=== PATIENT | female | born 1945 | race Caucasian/White ===

== ENCOUNTER 2024-04-09 20:17 | Inpatient (IN) | payer MEDICARE, SELFPAY ==
[2024-04-09] VITALS (18 sets, daily range): BP systolic 93–126; BP diastolic 38–74; BMI 33.7; BMI 33.4
[2024-04-09 16:53] LABS: % Basophils 0.2 % (0-2); % Eosinophils 0.6 % (0-6); % Immature Granulocytes 0.5 % (0-0.5); % Lymphocytes 16.6 % (20.5-51.1); % Monocytes 11.4 % (1.7-9.3); % Neutrophils 70.7 % (42.2-75.2); Absolute Eosinophils 0.1 10^3/uL (0-0.7); Absolute Immature Granulocytes 0.1 10^3/uL (0-0.05); Absolute Lymphocytes 1.6 10^3/uL (1.2-3.4); Absolute Monocytes 1.1 10^3/uL (0.1-0.6); Absolute Neutrophils 6.7 10^3/uL (1.4-6.5); Mean Corp Hgb Conc. 32.1 g/dL (33.0-37.0); Mean Corpuscular Hgb 28.1 pg (27.0-31.0); Mean Corpuscular Volume 87.5 fL (81.0-99.0); Mean Platelet Volume 9.2 fL (7.4-10.4); Nucleated Red Blood Cells % 0 %; Platelet Count 279 10^3/uL (130-400); Red Cell Dist. Width 13.5 % (11.5-14.5); White Blood Cell Count 9.5 10^3/uL (4.8-10.8)
[2024-04-09 17:05] LABS: ALT (SGPT) < 10 U/L (0-35); AST (SGOT) 17 U/L (14-36); Albumin 2.4 g/dl (3.5-5.0); Alkaline Phosphatase 109 U/L (38-126); Blood Urea Nitrogen 16 mg/dl (7-17); Calcium 8.5 mg/dl (8.4-10.2); Carbon Dioxide 23 mmol/L (22-30); Chloride 104 mmol/L (98-107); Estimated Creatinine Clearance 83 ml/min; Glucose 117 mg/dl (70-99); Potassium 3.6 mmol/L (3.5-5.1); Sodium 132 mmol/L (135-145); Total Bilirubin 0.5 mg/dl (0.2-1.3); Total Protein 5.7 g/dl (6.3-8.2); eGFR > 60.00
--- NOTE | 2024-04-09 17:11 | ED.GENMED ---
History of Present Illness
General
Chief Complaint: Wound Check/Suture Removal
Source: patient
Exam Limitations: none
Time Seen by Provider: 04/09/24 16:55
Nursing documentation reviewed up to this point in time: agreed with
Travel History
Have you had any contact with someone who has COVID-19?: No
Do you have any symptoms of coronavirus? Fever > 100 degrees, chills, cough, shortness of breath, sore throat, loss of taste or smell, muscle aches, or headache?: No
History of Present Illness
History of Present Illness:
Patient is a 78-year-old female with past medical history of anemia malignant melanoma of skin glaucoma lymphedema hyperlipidemia obesity was sent from [facility] for worsening sacral wound. Patient apparently developed a sacral wound at the
end of January. Patient was in rehab for left femur fracture s/p surgery01/2024) Patient follows [facility] wound care however wound is not improving. Patient presents awake alert. She has no complaints of fevers. She does complain of pain to
the sacral area when she is laying on the sacral area.
Review of Systems
Review of Systems
Allergies reviewed?: Yes
Other source history: care home
All Other Systems: ROS reviewed and negative except as documented in HPI and ROS
Constitutional: Reports no symptoms; Denies fever
Respiratory: Reports no symptoms
Cardiac: Reports no symptoms
ABD/GI: Reports no symptoms
: Reports no symptoms
Musculoskeletal: Reports no symptoms
Skin: Reports other (worsening sacral decubitus ulcer)
Neurological: Reports no symptoms
Psychiatric: Reports no symptoms
Phy Exam
General Physical Exam
General Presentation: no apparent distress
General age: appears stated age
General Skin: warm and dry
General Habitus: normal
General Mental: alert
General Hydration: appears well hydrated
Cardiovascular Exam
Cardiovascular Exam: regular rate/rhythm, no murmur and normal peripheral pulses
Pulmonary Exam
Pulmonary Exam: lungs clear and no respiratory distress
Neurological Exam
Neurological Exam: alert and oriented x3
Musculoskeletal Exam
Musculoskeletal Exam: full ROM
Skin Exam
Skin Exam: normal color, warm/dry and other (pt with large foul smell 11 cm by 14 cm by 4 cm deep sacral decubitus )
Psychiatric Exam
Psychiatric Exam: normal mood/affect
Course
Orders/Labs/Results
Orders:
Orders
04/09/24 Dinner
Regular
04/09/24 16:42
CMP [Comprehensive Metabolic Panel] Urgent
Complete Blood Count/With Diff Urgent
Ferritin Urgent
Comment: ADD ON
Folate Urgent
Comment: ADD ON
Iron Urgent
Comment: ADD ON
Total Iron Binding Urgent
Comment: ADD ON
Vitamin B12 Urgent
Comment: ADD ON
04/09/24 17:27
Wound Culture [Wound/Abscess/Other Culture] Urgent
DAVID Source: Sacral
Specimen Description:
Date Specimen was Collected: 04/09/24
Time Specimen was Collected: 17:26
04/09/24 17:30
Lactic Acid Q4H
Comment: ON ICE, CANCEL 2ND ORDER IF FIRST LACTIC ACID LEVEL <2
Blood Culture Q30M
DAVID Source: Blood/Venous
Specimen Description:
Comment: FROM 2 SEPARATE SITES
Blood Culture Q30M
DAVID Source: Blood/Venous
Specimen Description:
Comment: FROM 2 SEPARATE SITES
04/09/24 17:31
Acetaminophen [Tylenol] 650 mg PO NOW STA
04/09/24 18:26
MetroNIDAZOLE 500 MG/100 ML [Flagyl 500 mg] 100 ml IV NOW
04/09/24 19:04
CEFTAZidime [Fortaz] 2,000 mg IV NOW STA
04/09/24 19:05
Vancomycin [Vancocin] 1,500 mg 0.9% Sodium Chloride [Nss] 20 ml 0.9% Sodium Chloride 250 ml [Nss] 250 ml IV NOW
04/09/24 19:49
Admit/Transfer Patient As Directed
Co-Sign Provider:
Level of Care: Inpatient admission
Assign to:: Medical/Surgical
Physician / Group: perla muniz
Diagnosis: stage 4 sacral decub, anemia chronic, neurogenic bladder
Reason for Hospitalization: stage 4 sacral decub, anemia chronic, neurogenic bladder
Expected length of stay greater than two midnights?: Yes
ELOS- Estimated Length of Stay in days: 5
I certify the patient meets the requirements for IP care: Yes
Code Status As Directed
Resuscitation Status: Full Code
04/09/24 19:55
Add On- LAB Urgent
Tests Added?: iron ferritin, tibc, folate b12
04/09/24 19:57
SURGICAL CONSULT Routine
Consulting Provider: Ian Navarro
Was physician already notified: Yes
Reason for consult: sacral wound stage 4 or greater
04/09/24 19:58
WOUND/OSTOMY CONSULT Routine
Reason for Consult: stage 4 or greater sacral wound
MRSA Screen Routine
DAVID Source: Nose
Specimen Description:
04/09/24 19:59
CT Pelvis With Iv Contrast Routine
Comment:
Reason For Exam: sacral wound stage 4 or greater
04/09/24 20:00
De Leon Catheter [Catheter- Indwelling] As Directed
Reason for insertion: Chronic De Leon on Admit
Comment: please insert NEW de leon
04/09/24 20:15
0.9% Sodium Chloride 1000 ml [Nss] 1,000 ml IV 1,000 mls/hr
04/09/24 22:18
Acetaminophen [Tylenol] 650 mg PO Q6H PRN
Bisacodyl [Dulcolax] 10 mg RECTAL [id number] PRN
Docusate W/Senna [Senokot-S] 1 tablet PO BIDPRN PRN
Polyethylene Glycol Powder [Miralax] 17 grams PO DAILYPRN PRN
Prednisolone Acetate [Pred Forte 1% Eye Drops] 1 drop RIGHT EYE QID
Sennosides [Senokot] 8.6 mg PO BID
Simethicone [Mylicon] 80 mg PO Q6H PRN
VANCOMYCIN Pharmacy to Dose [VANCOCIN Pharmacy to Dose] 1 each Pharmacy To Prepare [Call Pharmacy To Prepare] 0 ml IV PER PROTOCOL
cycloSPORINE [Restasis 0.05% Ophthalmic Emulsion] 1 drops BOTH EYES BID
04/09/24 22:18
Activity As Directed
Activity Level: As Tolerated
Intake/ Output As Directed
Frequency: Per unit guidelines
Vital Signs As Directed
Frequency: Per unit guidelines
Ot Eval And Treat Routine
Pt Eval And Treat Routine
Activity Level: As Tolerated
DX Deep Vein Thrombosis Video Routine
04/10/24 00:00
Oxycodone [Roxicodone] 5 mg PO Q8
04/10/24 06:00
Complete Blood Count/With Diff IN AM
Comprehensive Metabolic Panel IN AM
Cefepime HCl [Maxipime] 1,000 mg IV Q8H
04/10/24 08:00
Gemfibrozil [Lopid] 600 mg PO DAILY
Lidocaine [Lidocaine 4% Patch] 1 patch TOPICAL DAILY
Oxybutynin Chloride [Ditropan] 5 mg PO BID
04/10/24 09:00
Cholestyramine/Aspartame [Questran Light/Prevalite] 4 grams PO DAILY@0900
04/10/24 18:00
Enoxaparin Sodium [Lovenox] 40 mg SC QPM
04/11/24 06:00
Complete Blood Count/With Diff IN AM
Comprehensive Metabolic Panel IN AM
04/12/24 06:00
Complete Blood Count/With Diff IN AM
Comprehensive Metabolic Panel IN AM
Abnormal Lab Results
04/09/24
16:42
RBC 3.20 L 10^6/uL
(4.20-5.40)
Hgb 9.0 L g/dL
(12.0-16.0)
Hct 28.0 L %
(37.0-47.0)
MCHC 32.1 L g/dL
(33.0-37.0)
Abs Immat Gran (auto) 0.1 H 10^3/uL
(0-0.05)
Absolute Neuts (auto) 6.7 H 10^3/uL
(1.4-6.5)
Absolute Monos (auto) 1.1 H 10^3/uL
(0.1-0.6)
Lymphocytes % 16.6 L %
(20.5-51.1)
Monocytes % 11.4 H %
(1.7-9.3)
Sodium 132 L mmol/L
(135-145)
Glucose 117 H mg/dl
(70-99)
Iron < 20 L ug/dl
(37-170)
TIBC 149 L ug/dl
(265-497)
Ferritin 307.0 H ng/ml
(11.1-264.0)
Total Protein 5.7 L g/dl
(6.3-8.2)
Albumin 2.4 L g/dl
(3.5-5.0)
Vitamin B12 216 L pg/ml
(239-931)
04/09/24 16:42
04/09/24 16:42
Vital Signs
Initial and Last Documented VS:
Initial Vital Signs
Temp Pulse Resp BP Pulse Ox
99.3 F 86 16 115/54 95
04/09/24 15:57 04/09/24 15:57 04/09/24 15:57 04/09/24 15:57 04/09/24 15:57
Last Documented Vital Signs
Temp Pulse Resp BP Pulse Ox
98.2 F 78 20 110/51 93
04/09/24 22:43 04/09/24 22:43 04/09/24 22:43 04/09/24 22:43 04/09/24 22:43
MDM/Problems Addressed
Differential Diagnosis Includes:
not limited to: sacral wound
MDM/Problems Addressed:
Patient is a 78 old female who was sent by [facility] for worsening sacral wound. Patient had displaced intertrochanteric fracture left femur with surgery January 2024 and has been in rehab since. She is presently being followed by [facility]'s
wound care without improvement. She is on no oral antibiotics. Patient presents awake alert she is oriented she is able to give history. She denies any fever or chills. She does not feel ill. She however was found to have a low-grade
temperature of 100.3. She was given Tylenol. Her white count is normal at 9.5 and her lactic acid is normal. She is anemic with a hemoglobin of 9.0 no prior labs denies any black or dark stools. She has normal renal function. On exam she has a
significant most likely stage IV decubitus ulcer to sacral area with very foul-smell iv antibx ordered. will likely need debridement.
Chronic conditions affecting care:
Recent left hip fracture and surgery January 2024
*Pulse Oximetry
Patient hypoxic: no
*Critical Care Note
Total Time (30-74mins, 75-104mins- exclusive of procedures): Not Applicable
ED Attending Note
-
Portions of this chart may have been created with voice recognition software.� Occasional wrong word or��sound alike� substitutions may have occurred due to the inherent limitations of voice recognition software.
Discharge Plan
Departure
Patient Disposition: Admit
Date of Disposition: 04/09/24
Time of Disposition: 18:32
Admit to: Med/Surg
Admit to doctor: hospitalist
Presentation/result/management discussed w/ accepting MD/DO: Hospitalist
Patient with high blood pressure during this ER visit?: No
Condition: Fair
Covid-19: Not Applicable
Discharge Problem:
sacral decubitus
Interventions
Interventions:
*Risk Screen - Suicide Last Done: 04/09/24 16:15
*General Assessment Last Done: 04/09/24 16:15
*Neglect/Abuse Screening Last Done: 04/09/24 16:15
*ED COVID-19 Vaccine History Last Done: 04/09/24 16:15
*Nursing Disposition Last Done: 04/09/24 22:17
ED-Skin Assessment Last Done: 04/09/24 16:40
Discharge Date and Time
Discharge Date/Time: 04/09/24 22:17
[2024-04-09] MEDS: TYLENOL 650 MG PO (17:37)
[2024-04-09 17:55] LABS: Lactic Acid 1.1 mmol/L (0.7-2.0)
[2024-04-09] MEDS: FLAGYL 500 MG 100 IV (19:07)
--- NOTE | 2024-04-09 19:19 | HPS.HSE ---
Family Physician
-
Family Physician: Celso Pepper
Chief Complaint
-
Foul-smelling sacral wound
History of Present Illness
78-year-old female from [facility] rehab sent for worsening sacral decub. She had history of a left femur fracture repair in January at [facility]. She has been following with [place] [facility]'s wound care however the wound is not
improving. She was noted to have a foul-smelling sacral decub with low-grade temp of 100.3 and pain to the sacral area with lying. She denies headache, shortness of breath, cough, abdominal pain, nausea, vomiting, diarrhea, urinary symptoms. She
reports she has been at [facility] rehab for several weeks since her was moved there also due to his dementia. She states for the last week she has only been able to intramural director place with a walker prior to that she was lying in bed she has
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
neurogenic bladder history of self cath prior to surgery January 2024 now with chronic Ramos catheter.
Medical History
Past Medical History
Past Medical History: Reports Other
Additional Past Medical History:
Anemia
neurogenic bladder history of self cath prior to surgery January 2024 now with chronic Ramos catheter.
malignant melanoma of skin right forearm
glaucoma
blind left eye
aniridia bilateral eyes
HLD
obesity
tethered cord syndrome 10-20 years ago repair with laminectomy was walking prior to surgery
Past Surgical History: Reports Other
Additional Past Surgical History:
Laminectomy lumbar
Left femur repair January 2024 [facility]
Melanoma removal right forearm
Appendectomy
Tonsillectomy
Cholecystectomy
Social History
Tobacco: Non-smoker
Alcohol: None
Drug: None
Personal:
Living: Senior Living ([place] [facility] )
Employment: Retired
Family History
Family History: Not pertinent
Allergies / Home Medications
Allergies reflects when Allergies were last updated in [email or web address].
Home Medications with original date entered in [email or web address]
Allergy/Medication List:
Allergies
Allergy/AdvReac Type Severity Reaction Status Date / Time
brimonidine Allergy Unknown Verified 04/09/24 16:15
Home Medications
acetaminophen 325 mg tablet 650 mg PO Q6H PRN general discomfort/fever>100.4 04/09/24
cholestyramine-aspartame 4 gram oral powder for susp in a packet (Cholestyramine Light) 4 g PO DAILY 04/09/24
collagenase clostridium histo. 250 unit/gram topical ointment (Santyl) 1 applic topical DAILY 04/09/24
cyclosporine 0.05 % eye drops in a dropperette 1 drp BOTH EYES BID 04/09/24
docusate sodium 100 mg capsule 100 mg PO BID 04/09/24
gemfibrozil 600 mg tablet 600 mg PO DAILY 04/09/24
lidocaine 4 % topical patch 1 patch topical DAILY lower back 04/09/24
oxybutynin chloride 10 mg tablet,extended release 24 hr 10 mg PO DAILY 04/09/24
oxycodone 5 mg tablet 5 mg PO Q8H 04/09/24
prednisolone acetate 1 % eye drops,suspension 1 drp RIGHT EYE QID 04/09/24
sennosides 8.6 mg tablet (senna) 8.6 mg PO BID 04/09/24
simethicone 80 mg chewable tablet 80 mg PO Q6H PRN gas 04/09/24
white petrolatum-mineral oil eye ointment 1 applic BOTH EYES DAILY 04/09/24
Review of Systems
-
History Source: Patient
A 12 point ROS was completed and negative except as noted: Yes
Constitutional: Reports Fever and Chills
EENT: Reports Other (Chronic lack of iris, aniridia, chronic cataract over left eye with left eye blindness); Denies Sore Throat or Runny Nose
Respiratory: Denies Cough or Trouble Breathing
Cardiac: Denies Chest Pain, Diaphoresis, Palpitations or Syncope
Abdomen/GI: Denies Abdominal Pain, Nausea, Vomiting, Diarrhea, Constipated, Bloody Stools or Black Stools
: Reports Ramos (Chronic Ramos catheter present on admission)
Musculoskeletal: Denies Joint Pain or Edema
Skin: Reports Other (Stage IV sacral decub foul-smelling with tunneling); Denies Itching
Neurological: Denies Dizzy, Headache or Weakness
Endocrine: Reports No Symptoms
Hematologic/Lymphatic: Reports No Symptoms
Psych: Reports Calm
Physical Exam
Vital Signs
Vital Signs
Temp Pulse Resp BP Pulse Ox
100.3 F 73 18 110/54 94
04/09/24 17:26 04/09/24 18:15 04/09/24 16:38 04/09/24 18:00 04/09/24 18:15
Physical Exam
General: Pain; No Chills
HEENT: NormoCephalic, Anicteric, [place] Conjunctivae and Other (Blind left eye with cataract overlying, chronic aniridia bilateral eyes since )
Respiratory: Clear; No Wheezes, Rales or Rhonchi
Cardiac: S1/S2 and Regular Rhythm; No Murmur, Rub, Gallop or Peripheral Edema
Breast: Deferred by me
GI: Soft, Non Tender, Non Distended, Normal Bowel Sounds and No Hepatosplenomegaly
Rectal: Deferred by Provider
Genito-urinary: Ramos (Present on admission due to neurogenic bladder)
Musculoskeletal: No Clubbing, No Cyanosis and No Edema
Skin: Warm, Dry and Decubitus Ulcers (Stage IV sacral decub foul-smelling with tunneling and green wound bed); No Rash
Neuro: AO x 3 and Other (Blind left eye, able to turn self in bed); No Slurred Speech, Facial Droop or Tremors
Psych: Calm
Laboratory Results
-
04/09/24 16:42
04/09/24 16:42
Laboratory Results
Lactic Acid 1.1 mmol/L (0.7-2.0) 04/09/24 17:30
Total Bilirubin 0.5 mg/dl (0.2-1.3) 04/09/24 16:42
AST 17 U/L (14-36) 04/09/24 16:42
ALT < 10 U/L (0-35) 04/09/24 16:42
Alkaline Phosphatase 109 U/L (38-126) 04/09/24 16:42
Impression/Plan
-
Impression/plan:
Admit to [facility]
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
100.3 F, WBC 9.5, 110/54
-Wound culture foul-smelling drainage, blood cultures x 2
-CT pelvis with contrast to assess sacral wound
-Consult general surgery as no one is on-call for plastics
-Consult wound care
-Tylenol as needed fever
-IV vancomycin, IV Flagyl, IV Fortaz given in Er
will cont IV vancomycin, IV cefepime
-Continue RESIDENTIAL CHILD CARE COUNSELOR oxycodone 5 mg every 8 hours with bowel regimen
#Status post intertrochanteric fracture left femur with repair January 2024 [facility]
#Chronic anemia�normocytic
Hgb 9, MCV 87.5 no prior labs
-Check iron panel, B12, folate
#Tethered cord syndrome 10 to 20 years ago status post laminectomy
#Neurogenic bladder history self cath
Patient used to self cath prior to surgery end of January
-Ramos catheter patient reports has been in since end january although appears clean
Will replace Ramos catheter on admission
#HLD
-Continue gemfibrozil 600 mg daily
#Malignant melanoma skin right forearm
#Obesity due to excess calorie consumption�BMI 33.7 kg
Weight loss recommended, low-fat diet
#Glaucoma�blind left eye
-Continue prednisone drops to right eye, cyclosporine 1 drop both eyes twice daily
#Aniridia both eyes since
DVT prophylaxis
Subcu Lovenox
Full code
--- NOTE | 2024-04-09 20:16 | W.PN.UPDATE ---
Update Note
Progress Note Update
This addendum is for H&P written on 04/09/24
I agree with assesmsent and plan, in addition
78yo F that was mostly bedbound since her fall and L femoral Fx in January broought from SNF with worsening sacral ulcer. On bedside eval found to have necrotic borders and tract. COncern for OM
-Cefepime/Vanco, CT pelvis, ESR/CRP, Bcx, Plastics for wound I&D and cultures
We have spent at least 79min preparing admission, reviewing previous chart notes, SNF papaerwork and direct patient care
[2024-04-09] MEDS: NSS 1000 IV (20:19)
[2024-04-09] MEDS: FORTAZ 2000 MG IV (20:26)
[2024-04-09 20:35] LABS: Total Iron Binding Capacity 149 ug/dl (265-497)
[2024-04-09 20:36] LABS: Iron < 20 ug/dl (37-170)
--- NOTE | 2024-04-09 20:53 | EDRN ---
this pts existing 14Franch de leon catheter that was present upon arrival to ER was removed by this NUT FORMER and replaced with a new one per JOE Monahan verbal order
[2024-04-09] MEDS: VANCOCIN 300 MG IV (20:57)
[2024-04-09] MEDS: VANCOCIN 300 ML IV (20:57)
[2024-04-09 21:47] LABS: Folate 8.9 ng/ml (2.76-20); Vitamin B12 216 pg/ml (239-931)
--- NOTE | 2024-04-09 22:30 | PTCARENOTE ---
Patient arrived from ED via stretcher to room 335, pulled from stretcher to bed with assist of 3 person. Patient alert and oriented, blind to left eye and BELKO[place]KI. Patient is wearing glasses. IVF bolus and vancomycin running at this time from ED.
Patient c/o pain to left hip (prior fracture, healed) and sacral pain from large nonhealing ulcer. Dressing in place, large amount of drainage present, foul smelling. Patient with chronic de leon catheter in place -- exchanged in ED this admission.
Call cha placed with patient and in reach, patient understands use of call cha. Will monitor.
[2024-04-09] MEDS: ROXICODONE 5 MG PO (23:28)
[2024-04-09] MEDS: RESTASIS 0.05% OPHTHALMIC EMULSION 1 DROPS BOTH EYES (23:28)
[2024-04-09] MEDS: SENOKOT 8.59999999999999964 MG PO (23:28)
[2024-04-09] MEDS: PRED FORTE 1% EYE DROPS 1 DROP RIGHT EYE (23:29)
[2024-04-10 06:00] VITALS: BMI 33.3
--- NOTE | 2024-04-10 06:00 | PTCARENOTE ---
Wound care performed to large unstageable/stage4 sacral decub ulcer -- ABD dressing taped to area with significant amount of purulent/foul smelling necrotic appearing drainage. Drainage brown in color, thick and slimy. Wound care and surgery
consulted to evaluate patient -- still awaiting consults at this time. Cleansed area with saline, packed area with saline soaked gauze and covered with silicone foams x3. Patient is unsure of how often wound care is performed, or even supposed to be
performed, at [facility]. She was unable to tell this RN if she had wound care performed by facility prior to arrival. Patient states 'I think they are probably supposed to be performing wound care every day, but who knows if they do.' Will
continue to monitor.
[2024-04-10] MEDS: TYLENOL 650 MG PO ×3 (06:03→22:35)
[2024-04-10] MEDS: MAXIPIME 1000 MG IV ×3 (06:04→21:03)
[2024-04-10] MEDS: STERILE WATER FOR INJECTION 10 ML IV ×3 (06:05→21:03)
[2024-04-10 07:00] VITALS: BP 109/42
[2024-04-10 07:43] LABS: % Basophils 0.3 % (0-2); % Eosinophils 0.3 % (0-6); % Immature Granulocytes 1.6 % (0-0.5); % Lymphocytes 14.2 % (20.5-51.1); % Neutrophils 71.6 % (42.2-75.2); Absolute Immature Granulocytes 0.2 10^3/uL (0-0.05); Absolute Lymphocytes 1.3 10^3/uL (1.2-3.4); Absolute Monocytes 1.1 10^3/uL (0.1-0.6); Absolute Neutrophils 6.7 10^3/uL (1.4-6.5); Hematocrit 26.4 % (37.0-47.0); Hemoglobin 8.4 g/dL (12.0-16.0); Mean Corp Hgb Conc. 31.8 g/dL (33.0-37.0); Mean Platelet Volume 9.5 fL (7.4-10.4); Nucleated Red Blood Cells % 0 %; Platelet Count 248 10^3/uL (130-400); Red Cell Dist. Width 13.7 % (11.5-14.5); White Blood Cell Count 9.4 10^3/uL (4.8-10.8)
--- NOTE | 2024-04-10 07:58 | W.PN.HOSP.TC ---
Today's Communication/Plan
-
see bold
Assessment / Plan
Assessment / Plan
HPI: 78-year-old female from [facility] rehab sent for worsening sacral decub. She had history of a left femur fracture repair in January at [facility]. She has been following with [facility]'s wound care however the wound is not
improving. She was noted to have a foul-smelling sacral decub with low-grade temp of 100.3 and pain to the sacral area with lying. She denies headache, shortness of breath, cough, abdominal pain, nausea, vomiting, diarrhea, urinary symptoms. She
reports she has been at [facility] rehab for several weeks since her was moved there also due to his dementia. She states for the last week she has only been able to insole rounder place with a walker prior to that she was lying in bed she has
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
neurogenic bladder history of self cath prior to surgery January 2024 now with chronic Ramos catheter.
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
100.3 F, WBC 9.5, 110/54
Status post Fortaz in the ER
Continue IV vancomycin, cefepime, follow-up blood cultures, wound culture
General surgery consulted for possible debridement
Trend fever and white count
#Status post intertrochanteric fracture left femur with repair January 2024 [facility]
Continue pain control, PT/OT
#Chronic anemia�normocytic
Iron level low, ferritin high due to inflammation
Due to iron deficiency and chronic inflammation
Unable to give iron secondary to infection
Continue to trend hemoglobin, transfuse for hemoglobin less than 7 point
#Tethered cord syndrome 10 to 20 years ago status post laminectomy
#Neurogenic bladder history self cath
Patient used to self cath prior to surgery end of January
Now has chronic Ramos, it was changed on admission
#HLD
Continue gemfibrozil 600 mg daily
#Malignant melanoma skin right forearm
#Obesity due to excess calorie consumption�BMI 33.7 kg
Weight loss recommended, low-fat diet
#Glaucoma�blind left eye
Continue prednisone drops to right eye, cyclosporine 1 drop both eyes twice daily
#Aniridia both eyes since
DVT prophylaxis�subcu Lovenox
Full code
Physical Exam
General: Obese, no acute distress
HEENT: Normocephalic, Atraumatic, EOMI, MMM
Respiratory: Clear to Auscultation bilaterally
Cardiac: Normal S1/S2, Regular Rate and Rhythm
GI: Soft, Nontender, Nondistended, Normal Bowel Sounds
Extremities: No Clubbing, Cyanosis, or Edema
Neuro: Nonfocal/Grossly Intact
Psych: Calm, Cooperative
Derm: Stage IV sacral decubitus ulcer dressed
Anticipated Discharge: > 48 hours
Subjective/Interval History
-
Date of Service: April 10, 2024
Patient denies lightheadedness, denies dizziness. Her sacral pain is 7 out of 10 in intensity. No chest pain, shortness of breath. No fever, no vomiting.
Objective Data
-
Labs:
Laboratory Results
04/10/24
07:08
WBC 9.4
Hgb 8.4 L
Hct 26.4 L
Plt Count 248
Sodium Pending
Potassium Pending
Chloride Pending
Carbon Dioxide Pending
BUN Pending
Creatinine Pending
Glucose Pending
Calcium Pending
Total Bilirubin Pending
AST Pending
ALT Pending
Alkaline Phosphatase Pending
Vital Signs:
Vital Signs
Temp Pulse Resp BP Pulse Ox
98.7 F 77 18 109/42 95
04/10/24 07:00 04/10/24 07:00 04/10/24 07:00 04/10/24 07:00 04/10/24 07:00
I&O
04/09/24 04/10/24 04/11/24
06:59 06:59 06:59
Output Total 650 / 650
Balance -650 / -650
[2024-04-10 08:41] LABS: ALT (SGPT) < 10 U/L (0-35); AST (SGOT) 16 U/L (14-36); Albumin 2.2 g/dl (3.5-5.0); Alkaline Phosphatase 105 U/L (38-126); Blood Urea Nitrogen 13 mg/dl (7-17); Carbon Dioxide 21 mmol/L (22-30); Chloride 107 mmol/L (98-107); Estimated Creatinine Clearance 83 ml/min; Glucose 100 mg/dl (70-99); Potassium 3.3 mmol/L (3.5-5.1); Sodium 132 mmol/L (135-145); Total Bilirubin 0.4 mg/dl (0.2-1.3); Total Protein 5.3 g/dl (6.3-8.2); eGFR > 60.00
[2024-04-10] MEDS: RESTASIS 0.05% OPHTHALMIC EMULSION 1 DROPS BOTH EYES ×2 (08:45→21:02)
[2024-04-10] MEDS: PRED FORTE 1% EYE DROPS 1 DROP RIGHT EYE ×4 (08:45→22:29)
[2024-04-10] MEDS: ROXICODONE 5 MG PO ×2 (08:45→15:06)
[2024-04-10] MEDS: QUESTRAN LIGHT/PREVALITE 4 GRAMS PO (08:45)
[2024-04-10] MEDS: LOPID 600 MG PO (08:45)
[2024-04-10] MEDS: SENOKOT 8.59999999999999964 MG PO ×2 (08:46→21:03)
[2024-04-10] MEDS: DITROPAN 5 MG PO ×2 (08:46→21:02)
--- NOTE | 2024-04-10 11:09 | PHA.VAN.IN ---
Assessment
- Assessment
Renal Function: Unknown baseline (0.6)
Maximum Temperature: 100.5 04/09/24 at 19:10 orally
Minimum Temperature: 98.2 04/09/24 at 22:43 orally
Concomitant Antimicrobials: Cefepime
AUC Dosing Plan
- Dosing Variables
Dosing Weight (kg): 85.3
Dosing CrCl (ml/min): 83
Vd coefficient (L/kg): 0.6
- Empiric Dosing
Initial / Loading Dose: Vancomycin 1500mg IV x 1 given 04/09/24 at 20:57
Maintenance Regimen: Vancomycin 750mg IV Q12hr starting at noon today
Estimated AUC (mcg*h/mL): 415
Estimated Peak (mcg*h/mL): 25
Estimated Trough (mcg/ml): 10
Estimated Half Life (H): 9.5
Pharmacokinetics Vancomycin I
- -
Patient Age: 78
Patient Sex: Female
Vancomycin Day #: 1
Indication: Skin And Soft Tissue
Requesting Provider: Lisa DIAZ
Pertinent Antimicrobial Allergies:
No antibiotic allergies
Height / Weight:
Height 5 ft 3 in
Actual Weight 85.304 kg
IBW in k.4
Adjusted BW in k.6
Pertinent Past Medical History: BMI~33,L Femur fx repair 02/21, chronic de leon, non-healing sacral wound
- Vital Signs / Lab Results
Temp Pulse Resp BP Pulse Ox
98.7 F 77 18 109/42 95
04/10/24 07:00 04/10/24 07:00 04/10/24 07:00 04/10/24 07:00 04/10/24 07:00
Lab Results - Hematology
04/09/24 04/10/24
16:42 07:08
WBC 9.5 9.4
Lab Results - Chemistry
04/09/24 04/10/24
16:42 07:08
BUN 16 13
Creatinine 0.6 0.6
Estimated Creat Clear 83 83
Albumin 2.4 L 2.2 L
04/09/24 04/09/24
17:30 21:30
Lactic Acid 1.1 Cancelled
Microbiology Results
04/09/24 17:27 Gram Stain - Preliminary
Sacral
--- NOTE | 2024-04-10 11:50 | CON.GS ---
Consultation
-
Requesting Provider: Taniya
Performing Provider: Huong for Ramon
Reason for Consultation: sacral wound
Medical History
-
Chief Complaint: Sacral ulcer
History of Present Illness:
78 yo female with a history of tethered cord with laminectomy, neurogenic bladder maintained with chronic de leon (changed on admission) and recent left femur fracture with repair at [facility] in January presenting from [facility]. She presents with
low grade fevers and reported worsening of a stage 4 sacral decubitus ulcer. The wound is foul smelling with dangling necrotic tissue over the site. There is cloudy purulent drainage present. She complains of sacral pain which she notes has been
present for several months.
Past Medical History
Past Medical History: Cancer (melanoma of right forearm), Hypercholesterolemia and Other (Neurogenic bladder with chronic urinary retention, maintained with de leon. Glaucoma: blind left eye. [place]. Anemia)
Past Surgical History: Appendectomy, Cholecystectomy, Orthopedic (tethered cord syndrome 10-20 years ago repair with laminectomy, [facility] femur [facility]) and Tonsilectomy
Social History
Tobacco: Non-Smoker
Alcohol: None
Living: Snf ([facility])
Employment: Retired
Family History
Family History: Reviewed & Not Pertinent
Allergies / Home Medications
Allergy/AdvReac Type Severity Reaction Status Date / Time
brimonidine Allergy Unknown Verified 04/09/24 16:15
�Medication �Instructions �Recorded �Confirmed �Type
acetaminophen 325 mg tablet 650 mg PO Q6H PRN general 04/09/24 04/09/24 History
discomfort/fever>100.4
cholestyramine-aspartame 4 gram 4 g PO DAILY Gastrointestinal Issue 04/09/24 04/09/24 History
oral powder for susp in a packet
(Cholestyramine Light)
collagenase clostridium histo. 250 1 applic topical DAILY Skin Issues 04/09/24 04/09/24 History
unit/gram topical ointment (Santyl)
cyclosporine 0.05 % eye drops in a 1 drp BOTH EYES BID Eye Condition 04/09/24 04/09/24 History
dropperette
docusate sodium 100 mg capsule 100 mg PO BID Constipation 04/09/24 04/09/24 History
gemfibrozil 600 mg tablet 600 mg PO DAILY High Cholesterol 04/09/24 04/09/24 History
lidocaine 4 % topical patch 1 patch topical HS lower back 04/09/24 04/10/24 History
oxybutynin chloride 10 mg 10 mg PO DAILY Urinary Issue 04/09/24 04/09/24 History
tablet,extended release 24 hr
oxycodone 5 mg tablet 5 mg PO Q8H Pain 04/09/24 04/09/24 History
prednisolone acetate 1 % eye 1 drp RIGHT EYE QID Eye Condition 04/09/24 04/09/24 History
drops,suspension
sennosides 8.6 mg tablet (senna) 8.6 mg PO BID Constipation 04/09/24 04/09/24 History
simethicone 80 mg chewable tablet 80 mg PO Q6H PRN gas 04/09/24 04/09/24 History
white petrolatum-mineral oil eye 1 applic BOTH EYES DAILY Eye 04/09/24 04/09/24 History
ointment Condition
Review of Systems
-
History Source: Patient
All other systems: Negative unless noted
A 10 point review of systems was completed, and was negative except as per HPI.
Physical Exam
Vital Signs
Temp Pulse Resp BP Pulse Ox
98.7 F 77 18 109/42 95
04/10/24 07:00 04/10/24 07:00 04/10/24 07:00 04/10/24 07:00 04/10/24 07:00
04/09/24 04/10/24 04/11/24
06:59 06:59 06:59
Actual Weight 85.304 kg
Body Mass Index (BMI) 33.3
Lab Results
04/10/24 07:08
04/10/24 07:08
WBC 9.4 10^3/uL (4.8-10.8) 04/10/24 07:08
Hgb 8.4 g/dL (12.0-16.0) L 04/10/24 07:08
Hct 26.4 % (37.0-47.0) L 04/10/24 07:08
Plt Count 248 10^3/uL (130-400) 04/10/24 07:08
Abs Immat Gran (auto) 0.2 10^3/uL (0-0.05) H 04/10/24 07:08
Neutrophils % 71.6 % (42.2-75.2) 04/10/24 07:08
Physical Exam
General: Well Developed
HEENT: Moist Mucous Membranes
Respiratory: Non Labored Respirations
GI: Soft and Non Tender
Rectal: Other (Prolapse present)
Skin: Warm and Other (Stage 4 pressure ulcer to sacrum, long segment of tissue hanging off edge of wound. [place] granulation tissue noted to side of wound bed. Tissue slough over bony prominence. )
Neuro: Awake, Alert and AO x 3
Psych: Calm
Data Reviewed
-
CT Scan: Image Personally Visualized and interpreted, Report Reviewed by me, Discussed with Nurse and Discussed with Patient
Labs: Labs Reviewed by me, Discussed with Physician, Discussed with Nurse and Discussed with Patient
Old Records: Reviewed
Assessment / Plan
-
78 yo female with left hip surgery in January presenting from SNF presenting with fevers and worsening Stage 4 pressure ulcer to sacrum with necrotic tissue noted. Thin layer of slough over bony prominence. Bedside debridement preformed and wound
culture sent. No tamiko pus noted.
Tmax of 100.5 last night, otherwise AFVSS
No leukocytosis
--Wound consult pending, will need OP follow up in wound clinic
--Local care with Dakin's 1/4 strength soaked packing. Change BID
--IV abx as per primary team
--Continue bowel regimen
[2024-04-10 12:57] VITALS: BP 117/54; PULSE 84; O2SAT 94
[2024-04-10 13:04] VITALS: BP 117/54; PULSE 84; O2SAT 95
[2024-04-10] MEDS: VANCOCIN 150 IV ×2 (13:05→21:00)
[2024-04-10 15:00] VITALS: BP 110/40
[2024-04-10 15:23] VITALS: BMI 33.3
[2024-04-10] MEDS: LOVENOX 40 MG SC (18:30)
[2024-04-10] MEDS: MIRALAX 17 GRAMS PO (21:02)
[2024-04-10] MEDS: LIDOCAINE 4% PATCH 1 PATCH TOPICAL (21:02)
[2024-04-10 23:00] VITALS: BP 114/45
[2024-04-11] MEDS: ROXICODONE PO (02:06)
[2024-04-11] MEDS: DAKIN'S SOLUTION 0.125% 1/4 STRENGTH TOPICAL (04:46)
[2024-04-11] MEDS: MAXIPIME 1000 MG IV ×3 (05:00→21:54)
[2024-04-11] MEDS: VANCOCIN 150 IV ×2 (05:00→17:49)
[2024-04-11] MEDS: STERILE WATER FOR INJECTION 10 ML IV ×3 (05:00→21:54)
[2024-04-11 07:30] VITALS: BP 122/64
[2024-04-11 07:57] LABS: Hematocrit 26.3 % (37.0-47.0); Hemoglobin 8.6 g/dL (12.0-16.0); Mean Corp Hgb Conc. 32.7 g/dL (33.0-37.0); Mean Corpuscular Volume 85.7 fL (81.0-99.0); Mean Platelet Volume 9.9 fL (7.4-10.4); Platelet Count 223 10^3/uL (130-400); Red Blood Cell Count 3.07 10^6/uL (4.20-5.40); Red Cell Dist. Width 13.6 % (11.5-14.5); White Blood Cell Count 6.7 10^3/uL (4.8-10.8)
[2024-04-11 08:15] LABS: ALT (SGPT) < 10 U/L (0-35); AST (SGOT) 17 U/L (14-36); Albumin 2.2 g/dl (3.5-5.0); Alkaline Phosphatase 98 U/L (38-126); Blood Urea Nitrogen 15 mg/dl (7-17); Calcium 8.1 mg/dl (8.4-10.2); Carbon Dioxide 22 mmol/L (22-30); Chloride 107 mmol/L (98-107); Estimated Creatinine Clearance 83 ml/min; Glucose 107 mg/dl (70-99); Phosphorus 2.9 mg/dl (2.5-4.5); Potassium 3.5 mmol/L (3.5-5.1); Sodium 131 mmol/L (135-145); Total Bilirubin 0.4 mg/dl (0.2-1.3); Total Protein 5.4 g/dl (6.3-8.2); eGFR > 60.00
--- NOTE | 2024-04-11 09:13 | W.PN.HOSP.TC ---
Today's Communication/Plan
-
see bold
Assessment / Plan
Assessment / Plan
HPI: 78-year-old female from [facility] rehab sent for worsening sacral decub. She had history of a left femur fracture repair in January at [facility]. She has been following with [place] care however the wound is not
improving. She was noted to have a foul-smelling sacral decub with low-grade temp of 100.3 and pain to the sacral area with lying. She denies headache, shortness of breath, cough, abdominal pain, nausea, vomiting, diarrhea, urinary symptoms. She
reports she has been at [facility] rehab for several weeks since her was moved there also due to his dementia. 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
neurogenic bladder history of self cath prior to surgery January 2024 now with chronic Ramos catheter.
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
100.3 F, WBC 9.5, 110/54
Status post Fortaz in the ER
Appreciate surgery input, status post bedside I&D on 04/10
Patient may require further I&D in the OR with possible colostomy in the future
Continue IV vancomycin, cefepime, follow-up blood cultures, wound culture
Trend fever and white count
#Status post intertrochanteric fracture left femur with repair January 2024 [facility]
Continue pain control, PT/OT
#Chronic anemia�normocytic
Iron level low, ferritin high due to inflammation
Due to iron deficiency and chronic inflammation
Unable to give iron secondary to infection
Continue to trend hemoglobin, transfuse for hemoglobin less than 7 point
#Tethered cord syndrome 10 to 20 years ago status post laminectomy
#Neurogenic bladder history self cath
Patient used to self cath prior to surgery end of January
Now has chronic Ramos, it was changed on admission
#Hypokalemia
Replete as needed
#Hyponatremia
Fluid restrict, check TSH/free T4, urine studies, trend sodium
#HLD
Continue gemfibrozil 600 mg daily
#Malignant melanoma skin right forearm
#Obesity due to excess calorie consumption�BMI 33.7 kg
Weight loss recommended, low-fat diet
#Glaucoma�blind left eye
Continue prednisone drops to right eye, cyclosporine 1 drop both eyes twice daily
#Aniridia both eyes since
DVT prophylaxis�subcu Lovenox
Full code
Total time spent to see the patient on the floor, examine the patient, review data and lab results, discuss treatment plan with patient, nursing staff around 50 minutes.
Physical Exam
General: Obese, no acute distress
HEENT: Normocephalic, Atraumatic, EOMI, MMM
Respiratory: Clear to Auscultation bilaterally
Cardiac: Normal S1/S2, Regular Rate and Rhythm
GI: Soft, Nontender, Nondistended, Normal Bowel Sounds
Extremities: No Clubbing, Cyanosis, or Edema
Neuro: Nonfocal/Grossly Intact
Psych: Calm, Cooperative
Derm: Stage IV sacral decubitus ulcer dressed
Anticipated Discharge: > 48 hours
Subjective/Interval History
-
Date of Service: April 11, 2024
Patient reports her pain is 6 out of 10 in intensity. No chest pain, no shortness of breath. No fever, no vomiting.
Objective Data
-
Labs:
Laboratory Results
04/11/24
07:07
WBC 6.7
Hgb 8.6 L
Hct 26.3 L
Plt Count 223
Sodium 131 L
Potassium 3.5
Chloride 107
Carbon Dioxide 22
BUN 15
Creatinine 0.5 L
Glucose 107 H
Calcium 8.1 L
Total Bilirubin 0.4
AST 17
ALT < 10
Alkaline Phosphatase 98
Vital Signs:
Vital Signs
Temp Pulse Resp BP Pulse Ox
98.6 F 80 20 122/64 94
04/11/24 07:30 04/11/24 07:30 04/11/24 07:30 04/11/24 07:30 04/11/24 07:30
I&O
04/10/24 04/11/24 04/12/24
06:59 06:59 06:59
Intake Total 720 / 720
Output Total 650 / 650 325 / 325
Balance -650 / -650 395 / 395
--- NOTE | 2024-04-11 09:16 | W.PN.GS2 ---
Today's Communication / Plan
-
Dressing changes BID
Assessment / Plan
-
78yo with a known sacral decubitus ulcer who presents from [facility] with a low-grade temp and pain in the area.. She underwent surgery for a left femur fracture in January 2024 at [facility]. Has followed with wound care at [facility].
AFVSS
No leukocytosis
May need eventual operative debridement and possible diverting colostomy; however, wound thus far improving s/p bedside debridement on 04/10/24
--Wound care to follow
--Continue BID dressing changes with Dakin's 1/4 soaked gauze (wet to dry)
Subjective Data
-
Date of Service: April 11, 2024
Patient seen and examined at bedside with Dr. Navarro. C/O sacral discomfort. Denies fevers/chills
Objective Data
-
Intake and Output
04/10/24 04/11/24 04/12/24
06:59 06:59 06:59
Intake Total 720 / 720
Output Total 650 / 650 325 / 325
Balance -650 / -650 395 / 395
Intake:
Oral fluids 720 / 720
Output:
Urine, Ramos 650 / 650 325 / 325
Vital Signs
Temp Pulse Resp BP Pulse Ox
98.6 F 80 20 122/64 94
04/11/24 07:30 04/11/24 07:30 04/11/24 07:30 04/11/24 07:30 04/11/24 07:30
Lab Results
04/11/24 07:07
04/11/24 07:07
Calcium 8.1 mg/dl (8.4-10.2) L 04/11/24 07:07
Phosphorus 2.9 mg/dl (2.5-4.5) 04/11/24 07:07
Magnesium 2.0 mg/dl (1.6-2.3) 04/11/24 07:07
Total Bilirubin 0.4 mg/dl (0.2-1.3) 04/11/24 07:07
AST 17 U/L (14-36) 04/11/24 07:07
ALT < 10 U/L (0-35) 04/11/24 07:07
Alkaline Phosphatase 98 U/L (38-126) 04/11/24 07:07
Total Protein 5.4 g/dl (6.3-8.2) L 04/11/24 07:07
Albumin 2.2 g/dl (3.5-5.0) L 04/11/24 07:07
Physical Exam
-
NAD
ABD soft/nt
Large sacral stage 4 wound, externally 13x9cm with tunnelling to proximal end. Granulation tissue noted to majority of wound, slough overlying bone. Serous/alexandra drainage on gauze packing. Dressing changed.
[2024-04-11] MEDS: ROXICODONE 5 MG PO ×2 (09:36→15:27)
[2024-04-11] MEDS: DITROPAN 5 MG PO ×2 (09:36→21:54)
[2024-04-11] MEDS: PRED FORTE 1% EYE DROPS 1 DROP RIGHT EYE ×4 (09:36→21:55)
[2024-04-11] MEDS: LOPID 600 MG PO (09:36)
[2024-04-11] MEDS: SENOKOT 8.59999999999999964 MG PO ×2 (09:36→21:54)
[2024-04-11] MEDS: RESTASIS 0.05% OPHTHALMIC EMULSION 1 DROPS BOTH EYES ×2 (09:36→21:54)
[2024-04-11] MEDS: QUESTRAN LIGHT/PREVALITE 4 GRAMS PO (09:37)
[2024-04-11] MEDS: DAKIN'S SOLUTION 0.125% 1/4 STRENGTH 473 ML TOPICAL ×2 (09:37→21:50)
[2024-04-11 10:39] LABS: Erythrocyte Sed Rate 65 mm/hour (0-20)
--- NOTE | 2024-04-11 11:02 | PHA.VAN.FU ---
Vancomycin Assessment / Plan
- Assessment
Renal Function: SCR Decreasing (0.6>0.5)
WBC's are: Trending Down (9.4>6.7)
In the past 24 hrs, patient has been: Afebrile
Concomitant Antimicrobials: Cefepime
- Dosing Plan
Continue: Vancomycin 750mg IV Q12hrs
- Monitoring Plan
Peak Level: Ordered for 04/11/24 at 20:30
Trough Level: Ordered for 04/12/24 at 05:30
- Follow Up
Pharmacy will continue to follow.
Vancomycin Follow UP
- -
Patient Age: 78
Patient Sex: Female
Vancomycin Day #: 2
Indication: Skin And Soft Tissue
Requesting Provider: Lisa DIAZ
Pertinent Antimicrobial Allergies:
No antibiotic allergies
Height / Weight:
Height 5 ft 3 in
Actual Weight 85.304 kg
IBW in k.4
Adjusted BW in k.6
Pertinent Past Medical History: BMI~33,L Femur fx repair 02/21, chronic de leon, non-healing sacral wound
- Vital Signs / Lab Results
Temp Pulse Resp BP Pulse Ox
98.6 F 80 20 122/64 94
04/11/24 07:30 04/11/24 07:30 04/11/24 07:30 04/11/24 07:30 04/11/24 07:30
Lab Results - Hematology
04/09/24 04/10/24 04/11/24
16:42 07:08 07:07
WBC 9.5 9.4 6.7
Lab Results - Chemistry
04/09/24 04/10/24 04/11/24
16:42 07:08 07:07
BUN 16 13 15
Creatinine 0.6 0.6 0.5 L
Estimated Creat Clear 83 83 83
Albumin 2.4 L 2.2 L 2.2 L
04/09/24 04/09/24
17:30 21:30
Lactic Acid 1.1 Cancelled
Microbiology Results
04/09/24 17:30 Blood Culture - Preliminary
Blood/Venous No Growth in 24 hours- Final report to follow
04/09/24 17:30 Blood Culture - Preliminary
Blood/Venous No Growth in 24 hours- Final report to follow
04/10/24 12:05 Gram Stain - Preliminary
Sacral
04/09/24 17:27 Wound Culture - Preliminary
Sacral Gram Stain - Preliminary
--- NOTE | 2024-04-11 15:12 | CM ---
MEt with patient who reports she was at [facility] earlier in year and [facility].c to [facility]. She moved to [facility] where he who has dementia is in LTC. They were in a room together. At first he was
happy to see her then he wanted her to get them both out of facility and became frustrated that she would not do that.
She would like option at this d/c to go to [facility] for short term rehab. Cm to put referral in allscripts. patient would go back to [facility] and knows he has been moved to another room.
Patient also requested CM email her LTC application to [facility]. EMail is [email or web address]. CM emailed application.
PLAN:[facility].
[2024-04-11 16:00] VITALS: BP 113/61
[2024-04-11] MEDS: TYLENOL 1000 MG PO ×2 (17:49→21:55)
[2024-04-11] MEDS: LOVENOX 40 MG SC (17:50)
[2024-04-11 18:29] LABS: Osmolality Urine 650 mOsm/kg (300-900)
[2024-04-11 18:36] LABS: Urine Sodium 92 mmol/L (30-90)
[2024-04-11 21:47] LABS: Vancomycin Peak 17.4 ug/ml (18-26)
[2024-04-11] MEDS: LIDOCAINE 4% PATCH 1 PATCH TOPICAL (21:50)
[2024-04-11] MEDS: MIRALAX PO (21:55)
[2024-04-11 23:10] VITALS: BP 111/49
[2024-04-12] MEDS: ROXICODONE 5 MG PO ×3 (00:05→15:08)
[2024-04-12 05:52] LABS: Hematocrit 27.2 % (37.0-47.0); Hemoglobin 8.7 g/dL (12.0-16.0); Mean Corpuscular Hgb 27.9 pg (27.0-31.0); Mean Corpuscular Volume 87.2 fL (81.0-99.0); Mean Platelet Volume 9.3 fL (7.4-10.4); Platelet Count 212 10^3/uL (130-400); Red Blood Cell Count 3.12 10^6/uL (4.20-5.40); Red Cell Dist. Width 13.7 % (11.5-14.5); White Blood Cell Count 6.2 10^3/uL (4.8-10.8)
[2024-04-12] MEDS: MAXIPIME 1000 MG IV ×3 (05:55→22:24)
[2024-04-12] MEDS: STERILE WATER FOR INJECTION 10 ML IV ×3 (05:55→22:24)
[2024-04-12 06:08] LABS: Vancomycin Trough 12.8 ug/ml (5-20)
[2024-04-12] MEDS: VANCOCIN 150 IV ×2 (06:17→18:34)
[2024-04-12 06:21] LABS: ALT (SGPT) < 10 U/L (0-35); AST (SGOT) 17 U/L (14-36); Albumin 2.2 g/dl (3.5-5.0); Alkaline Phosphatase 98 U/L (38-126); Blood Urea Nitrogen 12 mg/dl (7-17); Calcium 8.3 mg/dl (8.4-10.2); Carbon Dioxide 23 mmol/L (22-30); Chloride 108 mmol/L (98-107); Direct Bilirubin 0.3 mg/dl (0.0-0.4); Estimated Creatinine Clearance 83 ml/min; Glucose 106 mg/dl (70-99); Potassium 3.6 mmol/L (3.5-5.1); Sodium 135 mmol/L (135-145); Total Bilirubin 0.4 mg/dl (0.2-1.3); Total Protein 5.4 g/dl (6.3-8.2); eGFR > 60.00
[2024-04-12 06:43] LABS: Cortisol, Random 27.4 ug/dl; TSH Reflex To Free T4 1.07 uIU/ml (0.47-4.68)
[2024-04-12 07:00] VITALS: BP 127/56
[2024-04-12 07:42] LABS: Osmolality Serum 281 mOsm/kg (275-300)
[2024-04-12] MEDS: RESTASIS 0.05% OPHTHALMIC EMULSION 1 DROPS BOTH EYES ×2 (08:24→22:25)
[2024-04-12] MEDS: SENOKOT 8.59999999999999964 MG PO ×2 (08:25→22:25)
[2024-04-12] MEDS: QUESTRAN LIGHT/PREVALITE 4 GRAMS PO (08:25)
[2024-04-12] MEDS: TYLENOL 1000 MG PO ×3 (08:25→22:26)
[2024-04-12] MEDS: DITROPAN 5 MG PO ×2 (08:25→22:25)
[2024-04-12] MEDS: PRED FORTE 1% EYE DROPS 1 DROP RIGHT EYE ×4 (08:25→22:25)
[2024-04-12] MEDS: LOPID 600 MG PO (08:25)
[2024-04-12] MEDS: DAKIN'S SOLUTION 0.125% 1/4 STRENGTH 473 ML TOPICAL ×2 (08:26→22:26)
--- NOTE | 2024-04-12 09:17 | PHA.VAN.FU ---
Vancomycin Assessment / Plan
- Assessment
Renal Function: Stable
WBC's are: WNL
In the past 24 hrs, patient has been: Afebrile
Concomitant Antimicrobials: cefepime
- Assessment - Therapeutic Drug Monitoring
Extrapolated Cmax (mcg/mL): 19.1
Peak level was drawn: Appropriately (level drawn ~2.5H after end of previous infusion)
Extrapolated Cmin (mcg/mL): 12.7
Trough Drawn: Appropriately
Levels were drawn: At steady state (levels drawn after 4th maintenance dose; although, may have additional accumulation if half-life is correct)
Calculated AUC (mcg*h/mL): 377
Calculated ke: 0.0372
Calculated half life (H): 18.6
Calculated Vd (L): 107 (1.3 L/kg)
Calculated Vanc CL (ml/min): 66
- Dosing Plan
Adjust Regimen to: Vanc 1500mg Q24H starting 04/13 0600
Dosing Comments: continue 750mg Q12H through 1800 dose tonight
Patient with prolonged half-life - does not appear to follow population-PK
- Monitoring Plan
No level(s) ordered at this time: consider levels in next few days
- Follow Up
Pharmacy will continue to follow.
Vancomycin Follow UP
- -
Patient Age: 78
Patient Sex: Female
Vancomycin Day #: 3
Indication: Skin And Soft Tissue
Requesting Provider: Lisa DIAZ
Pertinent Antimicrobial Allergies:
no pertinent antibiotic allergies
Height / Weight:
Height 5 ft 3 in
Actual Weight 85.304 kg
IBW in k.4
Adjusted BW in k.6
Pertinent Past Medical History: BMI~33,L Femur fx repair 02/21, chronic de leon, non-healing sacral wound
- Vital Signs / Lab Results
Temp Pulse Resp BP Pulse Ox
98.5 F 83 16 127/56 95
04/12/24 07:00 04/12/24 07:00 04/12/24 07:00 04/12/24 07:00 04/12/24 07:00
Lab Results - Hematology
04/09/24 04/10/24 04/11/24
16:42 07:08 07:07
WBC 9.5 9.4 6.7
04/12/24
05:34
WBC 6.2
Lab Results - Chemistry
04/09/24 04/10/24 04/11/24
16:42 07:08 07:07
BUN 16 13 15
Creatinine 0.6 0.6 0.5 L
Estimated Creat Clear 83 83 83
Albumin 2.4 L 2.2 L 2.2 L
04/12/24
05:34
BUN 12
Creatinine 0.5 L
Estimated Creat Clear 83
Albumin 2.2 L
04/09/24 04/09/24
17:30 21:30
Lactic Acid 1.1 Cancelled
Microbiology Results
04/09/24 17:30 Blood Culture - Preliminary
Blood/Venous No Growth in 48 hours- Final report to follow
04/09/24 17:30 Blood Culture - Preliminary
Blood/Venous No Growth in 48 hours- Final report to follow
04/10/24 06:17 MRSA Screen - Preliminary
Nose Culture in Progress
04/10/24 12:05 Wound Culture - Preliminary
Sacral Gram Stain - Preliminary
04/09/24 17:27 Wound Culture - Final
Sacral Gram Stain - Final
Therapeutic Drug Monitoring
Vancomycin Peak 17.4 ug/ml (18-26) L 04/11/24 21:19
Vancomycin Trough 12.8 ug/ml (5-20) 04/12/24 05:34
--- NOTE | 2024-04-12 09:33 | W.PN.HOSP.TC ---
Today's Communication/Plan
-
2 OR today for further debridement of sacral decubitus
Continue vancomycin and cefepime/MRSA screen Prelimis negative
Will consult infectious disease
Assessment / Plan
Assessment / Plan
HPI: 78-year-old female from [facility] rehab sent for worsening sacral decub. She had history of a left femur fracture repair in January at [facility]. She has been following with [facility] care however the wound is not
improving. She was noted to have a foul-smelling sacral decub with low-grade temp of 100.3 and pain to the sacral area with lying. She denies headache, shortness of breath, cough, abdominal pain, nausea, vomiting, diarrhea, urinary symptoms. She
reports she has been at [facility] rehab for several weeks since her was moved there also due to his dementia. 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
neurogenic bladder history of self cath prior to surgery January 2024 now with chronic Ramos catheter.
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
100.3 F, WBC 9.5, 110/54/afebrile since arrival
Status post Fortaz in the ER
Appreciate surgery input, status post bedside I&D on 04/10
Patient may require further I&D in the OR with possible colostomy in the future
Continue IV vancomycin, cefepime, follow-up blood cultures, wound culture
-Prelim MRSA screen negative
-Will consult infectious disease postdebridement
Trend fever and white count
#Status post intertrochanteric fracture left femur with repair January 2024 [facility]
Continue pain control, PT/OT
#Chronic anemia�normocytic
Iron level low, ferritin high due to inflammation
Due to iron deficiency and chronic inflammation
Unable to give iron secondary to infection
Continue to trend hemoglobin, transfuse for hemoglobin less than 7 point
#Tethered cord syndrome 10 to 20 years ago status post laminectomy
#Neurogenic bladder history self cath
Patient used to self cath prior to surgery end of January
Now has chronic Ramos, it was changed on admission
#Hypokalemia
Replete as needed
#Hyponatremia
Fluid restrict, check TSH/free T4, urine studies, trend sodium
#HLD
Continue gemfibrozil 600 mg daily
#Malignant melanoma skin right forearm
#Obesity due to excess calorie consumption�BMI 33.7 kg
Weight loss recommended, low-fat diet
#Glaucoma�blind left eye
Continue prednisone drops to right eye, cyclosporine 1 drop both eyes twice daily
#Aniridia both eyes since
DVT prophylaxis�subcu Lovenox
Full code
Total time spent to see the patient on the floor, examine the patient, review data and lab results, discuss treatment plan with patient, nursing staff around 50 minutes.
Physical Exam
General: Obese, no acute distress
HEENT: Normocephalic, Atraumatic, EOMI, MMM
Respiratory: Clear to Auscultation bilaterally
Cardiac: Normal S1/S2, Regular Rate and Rhythm
GI: Soft, Nontender, Nondistended, Normal Bowel Sounds
Extremities: No Clubbing, Cyanosis, or Edema
Neuro: Nonfocal/Grossly Intact
Psych: Calm, Cooperative
Derm: Stage IV sacral decubitus ulcer dressed
Anticipated Discharge: 24 - 48 hours
Subjective/Interval History
-
Date of Service: April 12, 2024
Poor historian seems to be in some degree of discomfort
Objective Data
-
Labs:
Laboratory Results
04/12/24
05:34
WBC 6.2
Hgb 8.7 L
Hct 27.2 L
Plt Count 212
Sodium 135
Potassium 3.6
Chloride 108 H
Carbon Dioxide 23
BUN 12
Creatinine 0.5 L
Glucose 106 H
Calcium 8.3 L
Total Bilirubin 0.4
AST 17
ALT < 10
Alkaline Phosphatase 98
Vital Signs:
Vital Signs
Temp Pulse Resp BP Pulse Ox
98.5 F 83 16 127/56 95
04/12/24 07:00 04/12/24 07:00 04/12/24 07:00 04/12/24 07:00 04/12/24 07:00
I&O
04/11/24 04/12/24 04/13/24
06:59 06:59 06:59
Intake Total 720 / 720 480 / 480
Output Total 325 / 325 950 / 950
Balance 395 / 395 -470 / -470
Review of Systems
-
Unable to obtain full review of systems at this time due to: Dementia
History Source: Patient
Cardiac: Reports No Symptoms
Abdomen/GI: Reports No Symptoms
Skin: Reports Sores (Sacral ulcer)
Physical Exam
-
General: Pain
HEENT: Normocephalic
Respiratory: Clear to Auscultation
Cardiac: Regular Rhythm
GI: Soft
Skin: Ulcers (Sacral ulcer)
Neuro: Awake
Psych: Calm
Data Reviewed
-
Total Time Spent with Patient (in minutes): 56
Labs: Labs Reviewed by me (White count remains stable at 6.2 hemoglobin 8.7/C-reactive protein is markedly elevated 131)
--- NOTE | 2024-04-12 10:29 | W.PN.GS2 ---
Addendum entered and electronically signed by Eloy Samaniego MD 04/12/24 15:58:
I saw and examined the patient independently.
The Biz[employer] Developer's note was reviewed and I agree with the note, assessment and plan except where noted below.
Comment: This is a 78-year-old female with recent history of a left femur fracture repair as well as a known sacral decubitus ulcer who presents from [facility] with a low-grade fever as well as pain in the sacrum. She was diagnosed with a
decubitus ulcer. Imaging does not demonstrate any osteomyelitis currently. Part of the wound was debrided at bedside by Dr. Navarro however on exam today there is still significant necrotic tissue burden which I think would be best be evaluated and
managed in the OR.
I lengthy discussion with both patient and her son regarding overall prognosis and long-term goals of care if they wish to truly heal this sacral wound. The for step would be cleaning out any sort of contamination. Given her history of stool
incontinence and significant rectal prolapse noted on exam, I recommend a diverting colostomy to prevent further contamination. She will also need aggressive wound care with frequent turning and offloading of the wound. Ultimately she would likely
need a skin graft or skin flap for coverage. In addition she will likely need long-term antibiotics and if this does extend on which I suspect, she may need a prolonged course of IV antibiotics. Given all this the patient is not particularly
interested in super invasive therapies but is amenable at least for now for OR debridement, but is unsure if she wants to deal with the colostomy. Her son seems to favor a more aggressive approach. Of note the patient did ask if 'physician
assisted suicide' was an option here in [place], which I told her it was not. She denies any active suicidal ideation but is interested in all the options before her including hospice.
Given the heavy OR schedule will defer surgery until tomorrow.
Okay for p.o. diet, n.p.o. at midnight, continue IV fluids and antibiotics.
Wound care: Single piece of kerlix with Dakin's covered with an ABD, change twice daily.
Offload wound with frequent turning as able.
General surgery will continue to follow.
Original Note:
Today's Communication / Plan
-
OR today
Assessment / Plan
-
78yo who underwent surgery for a left femur fracture in January 2024 at [facility]. Known sacral decubitus ulcer who presents from [facility] with a low-grade temp and pain in the area on presentation.
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 Neurogenic bladder: maintained with de leon. Reports bowel incontinence since her admission in January.
AFVSS
No leukocytosis
May need eventual diverting colostomy
She notes that she is considering stopping treatments and pursuing end of life care
PPD#2 bedside debridement with wound cx sent
--Plan operative debridement today, patient agreeable
--Wound care to follow with us
--Wound culture pending, ABX as per primary team
Subjective Data
-
Date of Service: April 12, 2024
Patient seen and examined at bedside with Dr. Samaniego. Sacral pain persists. Discouraged with length of illness.
Objective Data
-
Intake and Output
04/11/24 04/12/24 04/13/24
06:59 06:59 06:59
Intake Total 720 / 720 480 / 480
Output Total 325 / 325 950 / 950
Balance 395 / 395 -470 / -470
Intake:
Oral fluids 720 / 720 480 / 480
Output:
Urine, De Leon 325 / 325 950 / 950
Vital Signs
Temp Pulse Resp BP Pulse Ox
98.5 F 83 16 127/56 95
04/12/24 07:00 04/12/24 07:00 04/12/24 07:00 04/12/24 07:00 04/12/24 07:00
Lab Results
04/12/24 05:34
04/12/24 05:34
Calcium 8.3 mg/dl (8.4-10.2) L 04/12/24 05:34
Phosphorus 2.9 mg/dl (2.5-4.5) 04/11/24 07:07
Magnesium 2.0 mg/dl (1.6-2.3) 04/11/24 07:07
Total Bilirubin 0.4 mg/dl (0.2-1.3) 04/12/24 05:34
Direct Bilirubin 0.3 mg/dl (0.0-0.4) 04/12/24 05:34
AST 17 U/L (14-36) 04/12/24 05:34
ALT < 10 U/L (0-35) 04/12/24 05:34
Alkaline Phosphatase 98 U/L (38-126) 04/12/24 05:34
Total Protein 5.4 g/dl (6.3-8.2) L 04/12/24 05:34
Albumin 2.2 g/dl (3.5-5.0) L 04/12/24 05:34
Physical Exam
-
NAD
ABD soft/nt
Rectal prolapse
Large sacral stage 4 wound, externally 13x9cm with tunnelling to proximal end.
--- NOTE | 2024-04-12 14:18 | WOUNDNOTE ---
[facility] RN NOTE: Reviewed chart, met with patient and spoke to RN Madonna. Patient has sacral stage 4 PI and plan is for OR for debridement this afternoon. Surgery has seen patient and provided wound care orders. Patient anxious about d�bridement and
ongoing wound care and declines photo at this time. Support provided to patient during conversation. Will continue to follow as needed.
[2024-04-12 15:00] VITALS: BP 112/51
--- NOTE | 2024-04-12 15:15 | CM ---
Case management following for d/c planning
Chart reviewed
For debridement of sacral wound tomorrow
Referrals sent to [facility] and [facility]
mobile product manager will cont to follow for d/c needs
Plan - anticipate SNF when medically ready (TBD) - no auth needed
[2024-04-12 15:54] VITALS: BP 120/53; PULSE 81; O2SAT 92
[2024-04-12] MEDS: LOVENOX 40 MG SC (18:34)
[2024-04-12] MEDS: LIDOCAINE 4% PATCH 1 PATCH TOPICAL (22:25)
[2024-04-12] MEDS: MIRALAX PO (22:26)
[2024-04-12 23:00] VITALS: BP 118/45
[2024-04-13] VITALS (7 sets, daily range): BP systolic 101–128; BP diastolic 43–55
[2024-04-13] MEDS: ROXICODONE 5 MG PO ×3 (00:35→23:00)
[2024-04-13] MEDS: VANCOCIN 300 MG IV (05:57)
[2024-04-13] MEDS: VANCOCIN 300 ML IV (05:57)
[2024-04-13] MEDS: MAXIPIME 1000 MG IV ×3 (05:57→21:08)
[2024-04-13] MEDS: STERILE WATER FOR INJECTION 10 ML IV ×3 (05:58→21:08)
[2024-04-13 06:14] LABS: Hematocrit 27.1 % (37.0-47.0); Hemoglobin 9.1 g/dL (12.0-16.0); Mean Corp Hgb Conc. 33.6 g/dL (33.0-37.0); Mean Corpuscular Hgb 27.9 pg (27.0-31.0); Mean Corpuscular Volume 83.1 fL (81.0-99.0); Mean Platelet Volume 9.4 fL (7.4-10.4); Platelet Count 221 10^3/uL (130-400); Red Blood Cell Count 3.26 10^6/uL (4.20-5.40); Red Cell Dist. Width 13.4 % (11.5-14.5); White Blood Cell Count 6.3 10^3/uL (4.8-10.8)
[2024-04-13 06:36] LABS: Blood Urea Nitrogen 13 mg/dl (7-17); Calcium 8.4 mg/dl (8.4-10.2); Carbon Dioxide 21 mmol/L (22-30); Chloride 107 mmol/L (98-107); Estimated Creatinine Clearance 83 ml/min; Glucose 97 mg/dl (70-99); Potassium 3.6 mmol/L (3.5-5.1); Sodium 135 mmol/L (135-145); eGFR > 60.00
--- NOTE | 2024-04-13 08:25 | PHA.VAN.FU ---
Vancomycin Assessment / Plan
- Assessment
Renal Function: Stable
WBC's are: WNL
In the past 24 hrs, patient has been: Afebrile
Concomitant Antimicrobials: cefepime
- Dosing Plan
Continue: Vanc 1500mg Q24H (first dose 04/13)
- Monitoring Plan
No level(s) ordered at this time: consider repeat levels in next few days
- Follow Up
Pharmacy will continue to follow.
Vancomycin Follow UP
- -
Patient Age: 78
Patient Sex: Female
Vancomycin Day #: 4
Indication: Skin And Soft Tissue
Requesting Provider: Lisa DIAZ
Pertinent Antimicrobial Allergies:
no pertinent antibiotic allergies
Height / Weight:
Height 5 ft 3 in
Actual Weight 85.304 kg
IBW in k.4
Adjusted BW in k.6
Pertinent Past Medical History: BMI~33,L Femur fx repair 02/21, chronic de leon, non-healing sacral wound
- Vital Signs / Lab Results
Temp Pulse Resp BP Pulse Ox
98.1 F 84 16 128/53 95
04/13/24 07:00 04/13/24 07:00 04/13/24 07:00 04/13/24 07:00 04/13/24 07:00
Lab Results - Hematology
04/11/24 04/12/24 04/13/24
07:07 05:34 05:47
WBC 6.7 6.2 6.3
Lab Results - Chemistry
04/10/24 04/11/24 04/12/24
07:08 07:07 05:34
BUN 13 15 12
Creatinine 0.6 0.5 L 0.5 L
Estimated Creat Clear 83 83 83
Albumin 2.2 L 2.2 L 2.2 L
04/13/24
05:47
BUN 13
Creatinine 0.5 L
Estimated Creat Clear 83
Albumin
Microbiology Results
04/09/24 17:30 Blood Culture - Preliminary
Blood/Venous No Growth in 72 hours- Final report to follow
04/09/24 17:30 Blood Culture - Preliminary
Blood/Venous No Growth in 72 hours- Final report to follow
04/10/24 06:17 MRSA Screen - Final
Nose Staph aureus MRSA
04/10/24 12:05 Wound Culture - Final
Sacral Gram Stain - Final
04/09/24 17:27 Wound Culture - Final
Sacral Gram Stain - Final
Therapeutic Drug Monitoring
Vancomycin Peak 17.4 ug/ml (18-26) L 04/11/24 21:19
Vancomycin Trough 12.8 ug/ml (5-20) 04/12/24 05:34
[2024-04-13] MEDS: DITROPAN 5 MG PO ×2 (08:43→21:09)
[2024-04-13] MEDS: LOPID 600 MG PO (08:43)
[2024-04-13] MEDS: TYLENOL 1000 MG PO ×2 (08:43→21:08)
--- NOTE | 2024-04-13 08:43 | W.PN.HOSP.TC ---
Today's Communication/Plan
-
For surgical debridement today
She by my questioning does not have resistance to pursuing further intervention such as diverting colostomy as needed and/or skin graft
Psychiatry input pending regarding possible underlying depression
Consult infectious disease
Assessment / Plan
Assessment / Plan
HPI: 78-year-old female from [facility] rehab sent for worsening sacral decub. She had history of a left femur fracture repair in January at [facility]. She has been following with [facility] however the wound is not
improving. She was noted to have a foul-smelling sacral decub with low-grade temp of 100.3 and pain to the sacral area with lying. She denies headache, shortness of breath, cough, abdominal pain, nausea, vomiting, diarrhea, urinary symptoms. She
reports she has been at [facility] rehab for several weeks since her was moved there also due to his dementia. 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
neurogenic bladder history of self cath prior to surgery January 2024 now with chronic Ramos catheter.
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
100.3 F, WBC 9.5, 110/54/afebrile since arrival
Status post Fortaz in the ER
Appreciate surgery input, status post bedside I&D on 04/10
Patient may require further I&D in the OR with possible colostomy in the future
Continue IV vancomycin, cefepime, follow-up blood cultures, wound culture
-Prelim MRSA screen was positive
-Will consult infectious disease postdebridement
-By conversation with her today she would be agreeable to diverting colostomy is warranted and skin grafting is warranted.
Trend fever and white count
#Status post intertrochanteric fracture left femur with repair January 2024 [facility]
Continue pain control, PT/OT
#Chronic anemia�normocytic
Iron level low, ferritin high due to inflammation
Due to iron deficiency and chronic inflammation
Unable to give iron secondary to infection
Continue to trend hemoglobin, transfuse for hemoglobin less than 7 point
#Tethered cord syndrome 10 to 20 years ago status post laminectomy
#Neurogenic bladder history self cath
Patient used to self cath prior to surgery end of January
Now has chronic Ramos, it was changed on admission
#Hypokalemia
Replete as needed
#Hyponatremia
Fluid restrict, check TSH/free T4, urine studies, trend sodium
#HLD
Continue gemfibrozil 600 mg daily
#Malignant melanoma skin right forearm
#Obesity due to excess calorie consumption�BMI 33.7 kg
Weight loss recommended, low-fat diet
#Glaucoma�blind left eye
Continue prednisone drops to right eye, cyclosporine 1 drop both eyes twice daily
#Aniridia both eyes since
DVT prophylaxis�subcu Lovenox
Full code
Total time spent to see the patient on the floor, examine the patient, review data and lab results, discuss treatment plan with patient, nursing staff around 50 minutes.
Physical Exam
General: Obese, no acute distress
HEENT: Normocephalic, Atraumatic, EOMI, MMM
Respiratory: Clear to Auscultation bilaterally
Cardiac: Normal S1/S2, Regular Rate and Rhythm
GI: Soft, Nontender, Nondistended, Normal Bowel Sounds
Extremities: No Clubbing, Cyanosis, or Edema
Neuro: Nonfocal/Grossly Intact
Psych: Calm, Cooperative
Derm: Stage IV sacral decubitus ulcer dressed
Anticipated Discharge: > 48 hours
Subjective/Interval History
-
Date of Service: April 13, 2024
Awoken from sleep and keeps going back to sleep during exam she denies refusing any surgical interventions 'just because I am asking questions does not mean I do not want to pursue my options.' In my interview with the patient she would be
agreeable to a diverting colostomy as needed for skin grafting is warranted.
Objective Data
-
Labs:
Laboratory Results
04/13/24
05:47
WBC 6.3
Hgb 9.1 L
Hct 27.1 L
Plt Count 221
Sodium 135
Potassium 3.6
Chloride 107
Carbon Dioxide 21 L
BUN 13
Creatinine 0.5 L
Glucose 97
Calcium 8.4
Vital Signs:
Vital Signs
Temp Pulse Resp BP Pulse Ox
98.1 F 84 16 128/53 95
04/13/24 07:00 04/13/24 07:00 04/13/24 07:00 04/13/24 07:00 04/13/24 07:00
I&O
04/12/24 04/13/24 04/14/24
06:59 06:59 06:59
Intake Total 480 / 480 240 / 240
Output Total 950 / 950 400 / 400
Balance -470 / -470 -160 / -160
Review of Systems
-
History Source: Patient
Respiratory: Reports No Symptoms
Cardiac: Reports No Symptoms
Abdomen/GI: Reports No Symptoms
Skin: Reports Sores (Sacral decubitus)
Physical Exam
-
General: No Apparent Distress
HEENT: Normocephalic
Respiratory: Clear to Auscultation
Cardiac: Regular Rhythm
GI: Soft
Skin: Ulcers (Stage IV sacral decubitus)
Neuro: Awake
Psych: Calm
Data Reviewed
-
Total Time Spent with Patient (in minutes): 56
Labs: Labs Reviewed by me (Globin 9.1/wb count 6.3)
[2024-04-13] MEDS: SENOKOT 8.59999999999999964 MG PO ×2 (08:44→21:09)
[2024-04-13] MEDS: RESTASIS 0.05% OPHTHALMIC EMULSION 1 DROPS BOTH EYES ×2 (08:44→21:10)
[2024-04-13] MEDS: PRED FORTE 1% EYE DROPS 1 DROP RIGHT EYE ×3 (08:44→22:54)
[2024-04-13] MEDS: DAKIN'S SOLUTION 0.125% 1/4 STRENGTH TOPICAL ×2 (09:05→21:03)
--- NOTE | 2024-04-13 10:46 | W.PN.GS2 ---
Today's Communication / Plan
-
--Plan operative debridement of sacral wound today, patient agreeable
Assessment / Plan
-
78yo who underwent surgery for a left femur fracture in January 2024 at [facility]. Known sacral decubitus ulcer who presents from [facility] with a low-grade temp and pain in the area on presentation.
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 Neurogenic bladder: maintained with de leon. Reports bowel incontinence since her admission in January.
AFVSS
No leukocytosis
May need eventual diverting colostomy
She notes that she is considering stopping treatments and pursuing end of life care
PPD#3 bedside debridement with wound cx sent
Given the extent of necrosis and necrotic debris recommend and plan for operative debridement. Patient willing to proceed with this today. Discussion regarding the potential need for diverting colostomy. Patient preference and we will hold on
performing this today. Will need to monitor her ability to manage this from a wound care perspective in the days to weeks to come. All questions answered.
--Plan operative debridement today, patient agreeable
--Wound care to follow with us
--Wound culture pending, ABX as per primary team
Subjective Data
-
Date of Service: April 13, 2024
No new complaints. No fevers or chills. Plan to proceed with surgical interventions.
Objective Data
-
Intake and Output
04/12/24 04/13/24 04/14/24
06:59 06:59 06:59
Intake Total 480 / 480 240 / 240
Output Total 950 / 950 400 / 400
Balance -470 / -470 -160 / -160
Intake:
Oral fluids 480 / 480 240 / 240
Output:
Urine, De Leon 950 / 950
Urine, Voided 400 / 400
Vital Signs
Temp Pulse Resp BP Pulse Ox
98.1 F 84 16 128/53 95
04/13/24 07:00 04/13/24 07:00 04/13/24 07:00 04/13/24 07:00 04/13/24 07:00
Lab Results
04/13/24 05:47
04/13/24 05:47
Calcium 8.4 mg/dl (8.4-10.2) 04/13/24 05:47
Phosphorus 2.9 mg/dl (2.5-4.5) 04/11/24 07:07
Magnesium 2.0 mg/dl (1.6-2.3) 04/11/24 07:07
Total Bilirubin 0.4 mg/dl (0.2-1.3) 04/12/24 05:34
Direct Bilirubin 0.3 mg/dl (0.0-0.4) 04/12/24 05:34
AST 17 U/L (14-36) 04/12/24 05:34
ALT < 10 U/L (0-35) 04/12/24 05:34
Alkaline Phosphatase 98 U/L (38-126) 04/12/24 05:34
Total Protein 5.4 g/dl (6.3-8.2) L 04/12/24 05:34
Albumin 2.2 g/dl (3.5-5.0) L 04/12/24 05:34
Physical Exam
-
Gen: NAD
Abd: soft, NT/ND
Rectal: prolapse, large sacral stage 4 wound, externally 13 x 19 cm with tunnelling to proximal end, necrotic and fibrinous debris, area of healthy skin intervening, no current stool contamination
--- NOTE | 2024-04-13 12:24 | CON.ID ---
Consultation
-
Date/Time Consultation Requested: 04/13/2024 0856
Date/Time Consultation Performed: 04/13/2024 1230
Requesting Provider: Dr. Chilo Bueno
Performing Provider: Dr. Mariana Bee
Reason for Consultation: sacral decubitus wound
Chief Complaint / Past History
Chief Complaint
Worsening sacral wound
History of Present Illness
78-year-old female with remote history of tethered cord syndrome status post laminectomy and walks with a walker, neurogenic bladder who was recently hospitalized at [facility] in January after a fall sustaining left femur fracture status post ORIF.
She was then transferred to [facility] rehab. Patient has been bedbound since femur fracture. She develop a sacral wound. However the sacral wound has not been healing. They turned foul-smelling with necrotic tissue and therefore patient
was sent to the hospital on April 09. Superficial swab of the wound positive for skin gabino. She was started on vancomycin and cefepime. On April 10, she underwent bedside debridement of necrotic tissue down to bone. The wound culture again grew few
skin gabino. Pelvic CT no abscess/osteo. Patient is planned to go to the OR for debridement today. She denies fever or chills. She has de leon catheter in place since femur ORIF.
Past History
Additional Past Medical History:
neurogenic bladder history of self cath prior to surgery January 2024 now with chronic De Leon catheter.
malignant melanoma of skin right forearm s/p resection
glaucoma
blind left eye
aniridia bilateral eyes
HLD
Left femur repair January 2024 [facility]
tethered cord syndrome 10-20 years ago repair with laminectomy
Appendectomy
Tonsillectomy
Cholecystectomy
Allergy History:
brimonidine Allergy (Verified 04/09/24 16:15)
Unknown
Medications Reviewed: Yes
Current Antibiotics:
Vancomycin
cefepime
Social History
Tobacco: Non-Smoker
Alcohol: None
Drug: None
Personal:
Living: Half-Way
Family History
Family History: Not Pertinent
Review of Systems
Review of Systems
General: Negative Fever, Chills or Change in Appetite
HEENT: Negative Headache or Pharyngitis
Respiratory: Negative Dyspnea or Cough
Gasteroenterology: Negative Nausea or Vomiting
Genital / Urological: Negative Flank Pain
Endocrine: Negative Weakness
Skin / Hair / Nails: Negative Rash
Neurological: Negative Headache or Dizziness
All systems: All other systems were reviewed and were negative
Vital Signs
Temp Pulse Resp BP Pulse Ox
98.1 F 84 16 128/53 95
04/13/24 07:00 04/13/24 07:00 04/13/24 07:00 04/13/24 07:00 04/13/24 07:00
Physical Exam
Physical Exam
Constitutional: No Acute Distress and Comfortable
Eyes: Sclera Anicteric
Cardiovascular: Regular Rate and S1/S2
Pulmonary: Clear
Gastrointestinal: Soft, Non Tender and Non Distended
Genito-Urinary: De Leon and Clear Urine; Negative CVA Tenderness
Extremities: Negative Edema
Wound: Other (+ brown stool on pad; sacral wound large with necrosis)
Neurological: AO x 3
Lab / Diagnostic Study Results
04/13/24 05:47
04/13/24 05:47
Abs Immat Gran (auto) 0.2 10^3/uL (0-0.05) H 04/10/24 07:08
Absolute Neuts (auto) 6.7 10^3/uL (1.4-6.5) H 04/10/24 07:08
Absolute Lymphs (auto) 1.3 10^3/uL (1.2-3.4) 04/10/24 07:08
Absolute Monos (auto) 1.1 10^3/uL (0.1-0.6) H 04/10/24 07:08
Absolute Basos (auto) 0.0 10^3/uL (0-0.2) 04/10/24 07:08
Immature Gran % 1.6 % (0-0.5) H 04/10/24 07:08
Neutrophils % 71.6 % (42.2-75.2) 04/10/24 07:08
Lymphocytes % 14.2 % (20.5-51.1) L 04/10/24 07:08
Monocytes % 12.0 % (1.7-9.3) H 04/10/24 07:08
Eosinophils % 0.3 % (0-6) 04/10/24 07:08
Basophils % 0.3 % (0-2) 04/10/24 07:08
ESR 65 mm/hour (0-20) H 04/11/24 07:07
Lactic Acid Cancelled 04/09/24 21:30
C-Reactive Protein 131.20 mg/L (0.0-10.00) H 04/11/24 07:07
Microbiology Results
Micro:
04/09/24 17:30 Blood Culture - Preliminary
Blood/Venous No Growth in 72 hours- Final report to follow
04/09/24 17:30 Blood Culture - Preliminary
Blood/Venous No Growth in 72 hours- Final report to follow
04/10/24 06:17 MRSA Screen - Final
Nose Staph aureus MRSA
04/10/24 12:05 Wound Culture - Final
Sacral Gram Stain - Final
04/09/24 17:27 Wound Culture - Final
Sacral Gram Stain - Final
04/09/24 CT pelvis with IV contrast: Moderate fecal material throughout the colon and in the rectum suggesting impaction. Right buttocks wound as described above. No associated findings to suggest osteomyelitis nor abscess formation. Associated
edematous change.
Assessment / Plan
# Stage IV sacral decubitus wound with necrosis
- s/p bedside debridement 04/10. Wound cx: few skin gabino.
-Pelvis CT: no osteo/abscess
- For OR debridement today. Please obtain deep aerobic and anaerobic cultures.
- Surgery offered diverting colostomy.
- Continue Vancomycin and cefepime.
- Add po metronidazole.
Care Review
Plan reviewed with: Physician (Dr. Sotelo)
--- NOTE | 2024-04-13 15:13 | W.PN.UPDATE ---
Update Note
Progress Note Update
Pt approached to offer Psychiatry consult to evaluate for depression. Pt declined Psychiatric consult, denied feeling depressed.
Psychiatry will sign off. Please re-consult for any new/immediate concerns.
[2024-04-13] MEDS: QUESTRAN PO (15:16)
[2024-04-13] MEDS: TYLENOL PO (17:22)
[2024-04-13] MEDS: ROXICODONE PO (17:22)
[2024-04-13] MEDS: FLAGYL PO (17:22)
[2024-04-13] MEDS: PRED FORTE 1% EYE DROPS RIGHT EYE ×2 (18:00→21:13)
--- NOTE | 2024-04-13 18:37 | W.SUR.PREOP ---
Pre-Operative Surgical Note
-
I have examined this patient prior to the performance of the scheduled procedure.
The patient's condition is unchanged from the time of the current History and
Physical and the patient is able to undergo the scheduled procedure.
[2024-04-13] MEDS: FLAGYL 500 MG PO ×2 (19:30→23:00)
--- NOTE | 2024-04-13 19:59 | W.IMMPOSTOP ---
Addendum entered and electronically signed by Ramin Sotelo MD 04/13/24 20:07:
[facility]#[id number]
Original Note:
Surgical Immed Post Op Note
-
Primary Surgeon: Deepak
Assisting Surgeon: None
Pre-op Diagnosis: Sacral decubitus ulcer, stage IV
Post-op Diagnosis: Sacral decubitus ulcer, stage IV
Procedure Performed: Excisional debridement of sacral ulcer in preparation for soft tissue flap
Anesthesia Type: General
Specimen / Cultures:
1. Wound swab and deep tissue culture
Estimated Blood Loss: 3 cc
Complications: None
Operative Findings:
1. Superficial necrotic and infected stringy tissue predominantly in cranial aspect of wound, inferiorly and majority of wound with good healthy granulation tissue
2. Sharp excisional debridement with scissors and Bovie of all necrotic and infected material
3. Tissue cultures obtained
4. Wound measurements 20 x 15 cm
5. Wound packed with Betadine soaked Kerlix, gauze and ABDs
[2024-04-13] MEDS: MIRALAX 17 GRAMS PO (21:09)
[2024-04-13] MEDS: LIDOCAINE 4% PATCH 1 PATCH TOPICAL (21:10)
[2024-04-13] MEDS: LOVENOX 40 MG SC (21:13)
--- NOTE | 2024-04-13 21:42 | PTCARENOTE ---
Received pt from PACU- pt post Excisional debridement of sacral ulcer in preparation for soft tissue flap. PT AAOx3, [place], Left eye blind. POX 92% on RA, lungs dec @ bases, occ dry cough. Chronic de leon in place draining lawrence urine with sediment.
Palpable peripheral pulses present, +1 B/L LE edema. Obese round abd. + bowel sounds. Sacral dressing intact. Pt reports pain at tolerable level. Left AC int capped. Left hand int capped. Pt repositioned per comfort. Pt refused pillow under sacrum.
Refused pillow under heels. Call cha in reach. Will continue to monitor.
--- NOTE | 2024-04-14 03:04 | DOWNTIME ---
There was a [employer] Client Receiving Teller Downtime on 04/13/2024 from 0100 to 04/14/2024 at 0300. Downtime documentation of patient's care, including medication administrations, has been reconciled in the electronic record per guidelines. Refer to the
patient's paper chart under the miscellaneous tab to see printed paper medication records and downtime forms.
[2024-04-14] MEDS: MAXIPIME 1000 MG IV ×3 (05:29→21:28)
[2024-04-14] MEDS: VANCOCIN 300 ML IV (05:30)
[2024-04-14] MEDS: VANCOCIN 300 MG IV (05:30)
[2024-04-14] MEDS: STERILE WATER FOR INJECTION 10 ML IV ×3 (05:30→21:28)
[2024-04-14 07:00] VITALS: BP 104/45
[2024-04-14] MEDS: FLAGYL 500 MG PO ×2 (08:03→16:13)
[2024-04-14] MEDS: LOPID 600 MG PO (08:03)
[2024-04-14] MEDS: TYLENOL 1000 MG PO ×3 (08:03→21:28)
[2024-04-14] MEDS: ROXICODONE 5 MG PO (08:03)
[2024-04-14] MEDS: RESTASIS 0.05% OPHTHALMIC EMULSION 1 DROPS BOTH EYES ×2 (08:04→20:06)
[2024-04-14] MEDS: SENOKOT 8.59999999999999964 MG PO ×2 (08:04→20:05)
[2024-04-14] MEDS: DITROPAN 5 MG PO ×2 (08:04→20:07)
[2024-04-14] MEDS: PRED FORTE 1% EYE DROPS 1 DROP RIGHT EYE ×4 (08:04→21:28)
[2024-04-14] MEDS: DAKIN'S SOLUTION 0.125% 1/4 STRENGTH 1 ML TOPICAL (08:10)
--- NOTE | 2024-04-14 08:11 | W.PN.HOSP.TC ---
Today's Communication/Plan
-
Continue wound care as per general surgery/presumptively will need preparation for skin flap closure at some point
Tissue cultures obtained during operative debridement yesterday ID on consult will continue on cefepime and vancomycin till further clarification
Assessment / Plan
Assessment / Plan
HPI: 78-year-old female from [facility] rehab sent for worsening sacral decub. She had history of a left femur fracture repair in January at [facility]. She has been following with [facility] however the wound is not
improving. She was noted to have a foul-smelling sacral decub with low-grade temp of 100.3 and pain to the sacral area with lying. She denies headache, shortness of breath, cough, abdominal pain, nausea, vomiting, diarrhea, urinary symptoms. She
reports she has been at [facility] rehab for several weeks since her was moved there also due to his dementia. 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
neurogenic bladder history of self cath prior to surgery January 2024 now with chronic Ramos catheter.
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
100.3 F, WBC 9.5, 110/54/afebrile since arrival
Status post Fortaz in the ER
Appreciate surgery input, status post bedside I&D on 04/10/further operative debridement performed on April 13 with anaerobic and anaerobic tissue cultures sent
Continue IV vancomycin, cefepime, follow-up blood cultures, wound culture
-Prelim MRSA screen was positive
-ID consult in place/continues on cefepime and vancomycin
-By conversation with her today she would be agreeable to diverting colostomy is warranted and skin grafting is warranted.
Trend fever and white count
#Status post intertrochanteric fracture left femur with repair January 2024 [facility]
Continue pain control, PT/OT
#Chronic anemia�normocytic
Iron level low, ferritin high due to inflammation
Due to iron deficiency and chronic inflammation
Unable to give iron secondary to infection
Continue to trend hemoglobin, transfuse for hemoglobin less than 7 point
#Tethered cord syndrome 10 to 20 years ago status post laminectomy
#Neurogenic bladder history self cath
Patient used to self cath prior to surgery end of January
Now has chronic Ramos, it was changed on admission
#Hypokalemia
Replete as needed
#Hyponatremia
Fluid restrict, check TSH/free T4, urine studies, trend sodium
#HLD
Continue gemfibrozil 600 mg daily
#Malignant melanoma skin right forearm
#Obesity due to excess calorie consumption�BMI 33.7 kg
Weight loss recommended, low-fat diet
#Glaucoma�blind left eye
Continue prednisone drops to right eye, cyclosporine 1 drop both eyes twice daily
#Aniridia both eyes since
DVT prophylaxis�subcu Lovenox
Full code
Total time spent to see the patient on the floor, examine the patient, review data and lab results, discuss treatment plan with patient, nursing staff around 50 minutes.
Physical Exam
General: Obese, no acute distress
HEENT: Normocephalic, Atraumatic, EOMI, MMM
Respiratory: Clear to Auscultation bilaterally
Cardiac: Normal S1/S2, Regular Rate and Rhythm
GI: Soft, Nontender, Nondistended, Normal Bowel Sounds
Extremities: No Clubbing, Cyanosis, or Edema
Neuro: Nonfocal/Grossly Intact
Psych: Calm, Cooperative
Derm: Stage IV sacral decubitus ulcer dressed
Anticipated Discharge: Within 24 hours
Subjective/Interval History
-
Date of Service: April 14, 2024
In better spirits however refused to be seen by psychiatry yesterday stating that she was not depressed. She wants to pursue any measures that would be required for her improvement in status and healing of her sacral decubitus.
Objective Data
-
Vital Signs:
Vital Signs
Temp Pulse Resp BP Pulse Ox
98.0 F 71 18 104/45 93
04/14/24 07:00 04/14/24 07:00 04/14/24 07:00 04/14/24 07:00 04/14/24 07:00
I&O
04/13/24 04/14/24 04/15/24
06:59 06:59 06:59
Intake Total 240 / 240 520 / 520
Output Total 400 / 400 850 / 850
Balance -160 / -160 -330 / -330
Review of Systems
-
History Source: Patient
EENT: Reports No Symptoms Reported
Respiratory: Reports No Symptoms
Cardiac: Reports No Symptoms
Abdomen/GI: Reports No Symptoms
Skin: Reports Sores
Physical Exam
-
General: Comfortable
HEENT: Normocephalic
Respiratory: Clear to Auscultation
Cardiac: Regular Rhythm
GI: Soft, Nontender and Nondistended
Skin: Ulcers (Stage IV sacral decubitus 20 x 10)
Neuro: Awake and Alert
Psych: Calm
Data Reviewed
-
Total Time Spent with Patient (in minutes): 67
Medical Tests (Nuc Med, Echo etc): Report Reviewed by me (Had deep tissue cultures obtained during operative debridement yesterday anaerobic and aerobic sent)
Labs: Labs Reviewed by me
--- NOTE | 2024-04-14 08:58 | PHA.VAN.FU ---
Addendum entered and electronically signed by Paris Limon Eliana 04/14/24 15:37:
BUN & SCR ordered per protocol
Original Note:
Vancomycin Assessment / Plan
- Assessment
Renal Function: No New Labs Today
In the past 24 hrs, patient has been: Afebrile
Concomitant Antimicrobials: cefepime, metronidazole
- Dosing Plan
Continue: Vanc 1500mg Q24H
- Monitoring Plan
Peak Level: 04/15 09:00
Trough Level: 04/15 05:30
Will obtain levels around 3rd dose of new regimen given possible discharge tomorrow
Will have to extrapolate to calculate AUC but will help assess new regimen prior to discharge
- Follow Up
Pharmacy will continue to follow.
Vancomycin Follow UP
- -
Patient Age: 78
Patient Sex: Female
Vancomycin Day #: 5
Indication: Skin And Soft Tissue
Requesting Provider: Eliu Monahan / Dr. Bee
Pertinent Antimicrobial Allergies:
no pertinent antibiotic allergies
Height / Weight:
Height 5 ft 3 in
Actual Weight 85.304 kg
IBW in k.4
Adjusted BW in k.6
Pertinent Past Medical History: BMI~33,L Femur fx repair 02/21, chronic de leon, non-healing sacral wound
- Vital Signs / Lab Results
Temp Pulse Resp BP Pulse Ox
98.0 F 71 18 104/45 93
04/14/24 07:00 04/14/24 07:00 04/14/24 07:00 04/14/24 07:00 04/14/24 07:00
Lab Results - Hematology
04/12/24 04/13/24
05:34 05:47
WBC 6.2 6.3
Lab Results - Chemistry
04/12/24 04/13/24
05:34 05:47
BUN 12 13
Creatinine 0.5 L 0.5 L
Estimated Creat Clear 83 83
Albumin 2.2 L
Microbiology Results
04/09/24 17:30 Blood Culture - Preliminary
Blood/Venous No Growth in 4 days- Final report to follow
04/09/24 17:30 Blood Culture - Preliminary
Blood/Venous No Growth in 4 days- Final report to follow
04/10/24 06:17 MRSA Screen - Final
Nose Staph aureus MRSA
04/10/24 12:05 Wound Culture - Final
Sacral Gram Stain - Final
Therapeutic Drug Monitoring
Vancomycin Peak 17.4 ug/ml (18-26) L 04/11/24 21:19
Vancomycin Trough 12.8 ug/ml (5-20) 04/12/24 05:34
[2024-04-14] MEDS: QUESTRAN 4 GRAM PO (09:50)
[2024-04-14] MEDS: DILAUDID 0.25 MG IV (11:30)
--- NOTE | 2024-04-14 12:09 | WOUNDNOTE ---
RAUL RN NOTE: Wound vac applied to sacral wound black foam to 125mmhg per Dr. Schultz. With assistance from [facility] nurse Nely Collado applied vac dressing, used small piece of Gracie seal at distal end, due to close proximity to rectum. Nurse Loy
also assisted and states patient does not have loose stools only smears on Covidien pad which was changed after dressing done. Heels intact, patient refused pillow under calves. Asked nurse to apply foam adhesives to protect heels when able. Patient
remains on [facility] air bed with turning schedule. Appetite is good, encourage protein selection with meals. Patient will be going to SNF upon discharge. Will document hospital vac placement on [facility] site. Will follow as needed.
--- NOTE | 2024-04-14 12:27 | WOUNDNOTE ---
WOC RN note: Notified Security Advisor Mary Kay Beck that patient will need a sacral wound vac at SNF; using large black vac foam, pump setting 125mmhg continuous, change q 48-72 hours.
--- NOTE | 2024-04-14 13:16 | W.PN.GS2 ---
Today's Communication / Plan
-
Vac
Assessment / Plan
-
78yo who underwent surgery for a left femur fracture in January 2024 at [facility]. Known sacral decubitus ulcer who presents from [facility] with a low-grade temp and pain in the area on presentation.
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 Neurogenic bladder: maintained with de leon. Reports bowel incontinence since her admission in January.
AFVSS
No leukocytosis
May need eventual diverting colostomy
She notes that she is considering stopping treatments and pursuing end of life care
POD1 s/p OR I&D
PPD#3 bedside debridement with wound cx sent
--Wound care to follow with us
--Wound culture pending, ABX as per primary team
--Will attempt wound vac today
Subjective Data
-
Date of Service: April 14, 2024
AFVSS, no specific complaints, pain controlled
Objective Data
-
Intake and Output
04/13/24 04/14/24 04/15/24
06:59 06:59 06:59
Intake Total 240 / 240 520 / 520
Output Total 400 / 400 850 / 850
Balance -160 / -160 -330 / -330
Intake:
Oral fluids 240 / 240 120 / 120
IV fluids (Total) 100 / 100
normosol 100 / 100
IV piggybacks 300 / 300
Output:
Urine, De Leon 850 / 850
Urine, Voided 400 / 400
Vital Signs
Temp Pulse Resp BP Pulse Ox
98.0 F 71 18 104/45 93
04/14/24 07:00 04/14/24 07:00 04/14/24 07:00 04/14/24 07:00 04/14/24 07:00
Lab Results
04/13/24 05:47
05/14/24 05:47
Calcium 8.4 mg/dl (8.4-10.2) 04/13/24 05:47
Phosphorus 2.9 mg/dl (2.5-4.5) 04/11/24 07:07
Magnesium 2.0 mg/dl (1.6-2.3) 04/11/24 07:07
Total Bilirubin 0.4 mg/dl (0.2-1.3) 04/12/24 05:34
Direct Bilirubin 0.3 mg/dl (0.0-0.4) 04/12/24 05:34
AST 17 U/L (14-36) 04/12/24 05:34
ALT < 10 U/L (0-35) 04/12/24 05:34
Alkaline Phosphatase 98 U/L (38-126) 04/12/24 05:34
Total Protein 5.4 g/dl (6.3-8.2) L 04/12/24 05:34
Albumin 2.2 g/dl (3.5-5.0) L 04/12/24 05:34
Physical Exam
-
Gen: NAD
Rectal: large clean stage IV sacral pressure wound, no need for further surgical debridement, no stool soilage noted
--- NOTE | 2024-04-14 14:35 | W.PN.ID1 ---
Date of Service
Date of Service: April 14, 2024
Today's Communication
Continue Vancomycin, cefepime, metronidazole pending OR cx data
Assessment / Plan
# Stage IV sacral decubitus wound with necrosis
-Pelvis CT: no osteo/abscess
- s/p bedside debridement 04/10. Wound cx: few skin gabino.
- s/p OR debridement 04/13.
Appreciate surgeon for sending deep tissue cx's - GNR
- Consider diverting colostomy.
- Continue Vancomycin, cefepime, metronidazole pending OR cx data
#Additional Past Medical History:
neurogenic bladder history of self cath prior to surgery January 2024 now with chronic Ramos catheter.
malignant melanoma of skin right forearm s/p resection
glaucoma
blind left eye
aniridia bilateral eyes
HLD
Left femur repair January 2024 [facility]
tethered cord syndrome 10-20 years ago repair with laminectomy
Appendectomy
Tonsillectomy
Cholecystectomy
Chief Complaint
-: Other (Sacral decubitus)
Subjective / Review of Systems
Post-op pain controlled
Vital Signs / Physical Exam
Vital Signs
Vital Signs
Temp Pulse Resp BP Pulse Ox
98.0 F 71 18 104/45 93
04/14/24 07:00 04/14/24 07:00 04/14/24 07:00 04/14/24 07:00 04/14/24 07:00
Physical Exam
Constitutional: No Acute Distress and Comfortable
Pulmonary: Clear
Genito-Urinary: Ramos and Clear Urine
Objective Data
Lab Data
Lab Results
04/13/24 05:47
04/13/24 05:47
ESR 65 mm/hour (0-20) H 04/11/24 07:07
Estimated Creat Clear 83 ml/min 04/13/24 05:47
Lactic Acid Cancelled 04/09/24 21:30
Total Bilirubin 0.4 mg/dl (0.2-1.3) 04/12/24 05:34
AST 17 U/L (14-36) 04/12/24 05:34
ALT < 10 U/L (0-35) 04/12/24 05:34
Alkaline Phosphatase 98 U/L (38-126) 04/12/24 05:34
C-Reactive Protein 131.20 mg/L (0.0-10.00) H 04/11/24 07:07
Most recent labs reviewed.
Micro Results:
04/13/24 19:27 Tissue Culture - Preliminary
Ulcer Gram Stain - Final
04/13/24 19:27 Anaerobic Culture - Preliminary
Ulcer Culture pending. Anaerobic cultures are examined after 3
days incubation. Additional information to follow.
04/13/24 19:27 Wound Culture - Preliminary
Ulcer Gram negative bacilli
Gram Stain - Pending
04/09/24 17:30 Blood Culture - Preliminary
Blood/Venous No Growth in 4 days- Final report to follow
04/09/24 17:30 Blood Culture - Preliminary
Blood/Venous No Growth in 4 days- Final report to follow
04/10/24 06:17 MRSA Screen - Final
Nose Staph aureus MRSA
04/10/24 12:05 Wound Culture - Final
Sacral Gram Stain - Final
04/09/24 17:27 Wound Culture - Final
Sacral Gram Stain - Final
04/09/24 CT pelvis with IV contrast: Moderate fecal material throughout the colon and in the rectum suggesting impaction. Right buttocks wound as described above. No associated findings to suggest osteomyelitis nor abscess formation. Associated
edematous change.
[2024-04-14 15:00] VITALS: BP 115/55
[2024-04-14 15:29] VITALS: BP 115/55; PULSE 85; O2SAT 96
[2024-04-14 15:30] VITALS: BP 115/55; PULSE 85
[2024-04-14] MEDS: ROXICODONE 7.5 MG PO (16:14)
--- NOTE | 2024-04-14 16:21 | CM ---
Addendum entered by Mary Kay Beck 04/14/24 16:35:
Pt will need wound vac - massage sent to Karen at [facility]
Original Note:
Case Management following for d/c planning
Pt s/p debridement of sacral wound
[facility] not have beds - pt aware. Aware she will return to [facility] when d/c'ed
Updates sent in care port
Plan - return to [facility] when medically stable - no auth needed
[2024-04-14] MEDS: LOVENOX 40 MG SC (17:25)
[2024-04-14] MEDS: LIDOCAINE 4% PATCH 1 PATCH TOPICAL (21:27)
[2024-04-14] MEDS: MIRALAX PO ×2 (21:29→21:30)
[2024-04-14] MEDS: DAKIN'S SOLUTION 0.125% 1/4 STRENGTH TOPICAL (21:29)
[2024-04-14 23:12] VITALS: BP 91/38
[2024-04-15] MEDS: FLAGYL 500 MG PO ×2 (00:09→08:13)
[2024-04-15] MEDS: ROXICODONE 7.5 MG PO ×3 (00:09→16:00)
[2024-04-15 04:20] VITALS: BP 105/48
[2024-04-15] MEDS: MAXIPIME 1000 MG IV (05:21)
[2024-04-15] MEDS: STERILE WATER FOR INJECTION 10 ML IV (05:22)
[2024-04-15 05:37] LABS: Hematocrit 26.5 % (37.0-47.0); Hemoglobin 8.5 g/dL (12.0-16.0); Mean Corp Hgb Conc. 32.1 g/dL (33.0-37.0); Mean Corpuscular Hgb 27.7 pg (27.0-31.0); Mean Corpuscular Volume 86.3 fL (81.0-99.0); Mean Platelet Volume 9.3 fL (7.4-10.4); Platelet Count 223 10^3/uL (130-400); Red Blood Cell Count 3.07 10^6/uL (4.20-5.40); Red Cell Dist. Width 13.7 % (11.5-14.5); White Blood Cell Count 7.4 10^3/uL (4.8-10.8)
[2024-04-15 06:10] LABS: Blood Urea Nitrogen 23 mg/dl (7-17); Estimated Creatinine Clearance 71 ml/min
[2024-04-15 06:17] LABS: Vancomycin Trough 12.5 ug/ml (5-20)
[2024-04-15] MEDS: VANCOCIN 300 ML IV (06:40)
[2024-04-15] MEDS: VANCOCIN 300 MG IV (06:40)
--- NOTE | 2024-04-15 07:32 | W.PN.HOSP.TC ---
Today's Communication/Plan
-
Awaiting operative wound cultures from decubitus/wound VAC in place and managed by general surgery
Continue metronidazole, vancomycin, cefepime per ID
She reiterated to me that she wants all measures to be undertaken to improve her status and including diverting colostomy at and/or flap closure if warranted.
Continue to monitor white count
Assessment / Plan
Assessment / Plan
HPI: 78-year-old female from [facility] rehab sent for worsening sacral decub. She had history of a left femur fracture repair in January at [facility]. She has been following with [facility] however the wound is not
improving. She was noted to have a foul-smelling sacral decub with low-grade temp of 100.3 and pain to the sacral area with lying. She denies headache, shortness of breath, cough, abdominal pain, nausea, vomiting, diarrhea, urinary symptoms. She
reports she has been at [facility] rehab for several weeks since her was moved there also due to his dementia. 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
neurogenic bladder history of self cath prior to surgery January 2024 now with chronic Ramos catheter.
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
100.3 F, WBC 9.5, 110/54/afebrile since arrival
Status post Fortaz in the ER
Appreciate surgery input, status post bedside I&D on 04/10/further operative debridement performed on April 13 with anaerobic and anaerobic tissue cultures sent
, wound culture culture from OR April 13 with gram-negative bacilli thus far
-Prelim MRSA screen was positive
-ID consult in place/continues on cefepime and vancomycin metronidazole
-By conversation with her today she would be agreeable to diverting colostomy is warranted and skin grafting is warranted.
Trend fever and white count
#Status post intertrochanteric fracture left femur with repair January 2024 [facility]
Continue pain control, PT/OT
#Chronic anemia�normocytic
Iron level low, ferritin high due to inflammation
Due to iron deficiency and chronic inflammation
Unable to give iron secondary to infection
Continue to trend hemoglobin, transfuse for hemoglobin less than 7 point
#Tethered cord syndrome 10 to 20 years ago status post laminectomy
#Neurogenic bladder history self cath
Patient used to self cath prior to surgery end of January
Now has chronic Ramos, it was changed on admission
#Hypokalemia
Replete as needed
#Hyponatremia
Fluid restrict, check TSH/free T4, urine studies, trend sodium
#HLD
Continue gemfibrozil 600 mg daily
#Malignant melanoma skin right forearm
#Obesity due to excess calorie consumption�BMI 33.7 kg
Weight loss recommended, low-fat diet
#Glaucoma�blind left eye
Continue prednisone drops to right eye, cyclosporine 1 drop both eyes twice daily
#Aniridia both eyes since
DVT prophylaxis�subcu Lovenox
Full code
Total time spent to see the patient on the floor, examine the patient, review data and lab results, discuss treatment plan with patient, nursing staff around 50 minutes.
Physical Exam
General: Obese, no acute distress
HEENT: Normocephalic, Atraumatic, EOMI, MMM
Respiratory: Clear to Auscultation bilaterally
Cardiac: Normal S1/S2, Regular Rate and Rhythm
GI: Soft, Nontender, Nondistended, Normal Bowel Sounds
Extremities: No Clubbing, Cyanosis, or Edema
Neuro: Nonfocal/Grossly Intact
Psych: Calm, Cooperative
Derm: Stage IV sacral decubitus ulcer dressed
Anticipated Discharge: Within 24 hours
Subjective/Interval History
-
Date of Service: April 15, 2024
She again reiterates to me that she would be interested in all measures to help improve her status this would include a diverting colostomy or for occult closure down the road if that is an option. She is not interested in end-of-life care
Objective Data
-
Labs:
Laboratory Results
04/15/24
05:25
WBC 7.4
Hgb 8.5 L
Hct 26.5 L
Plt Count 223
BUN 23 H
Creatinine 0.7
Vital Signs:
Vital Signs
Temp Pulse Resp BP Pulse Ox
99 F 80 16 105/48 93
04/14/24 23:12 04/15/24 04:20 04/14/24 23:12 04/15/24 04:20 04/15/24 04:20
I&O
04/14/24 04/15/24 04/16/24
06:59 06:59 06:59
Intake Total 520 / 520 1620 / 1620
Output Total 850 / 850 450 / 450
Balance -330 / -330 1170 / 1170
Review of Systems
-
History Source: Patient
Musculoskeletal: Reports Muscle Pain
Neuro: Reports No Symptoms
Physical Exam
-
General: No Apparent Distress
Respiratory: Clear to Auscultation
Cardiac: Regular Rhythm
GI: Soft
Genito-urinary: Ramos
Skin: Decubitus Ulcers (Wound VAC applied 04/14), IV Access / Catheter Site and Other
Neuro: Awake
Data Reviewed
-
Total Time Spent with Patient (in minutes): 56
Labs: Labs Reviewed by me (No leukocytosis hemoglobin stable 8.5 demonstrates stable vancomycin peak pending trough 12.5)
[2024-04-15 07:44] VITALS: BP 121/57
[2024-04-15] MEDS: DAKIN'S SOLUTION 0.125% 1/4 STRENGTH TOPICAL ×2 (08:11→21:00)
[2024-04-15] MEDS: LOPID 600 MG PO (08:11)
[2024-04-15] MEDS: TYLENOL 1000 MG PO ×3 (08:12→21:01)
[2024-04-15] MEDS: RESTASIS 0.05% OPHTHALMIC EMULSION 1 DROPS BOTH EYES ×2 (08:12→21:01)
[2024-04-15] MEDS: SENOKOT 8.59999999999999964 MG PO ×2 (08:13→21:01)
[2024-04-15] MEDS: DITROPAN 5 MG PO ×2 (08:13→21:01)
[2024-04-15] MEDS: PRED FORTE 1% EYE DROPS 1 DROP RIGHT EYE ×4 (08:14→21:49)
[2024-04-15] MEDS: QUESTRAN 4 GRAM PO (09:19)
--- NOTE | 2024-04-15 10:41 | W.PN.ID1 ---
Date of Service
Date of Service: April 15, 2024
Today's Communication
Zosyn 3.375 IV q6h x 6 weeks through 05/25/24
Assessment / Plan
# Stage IV sacral decubitus wound to bone with necrosis, suspect osteo
-Pelvis CT: no osteo/abscess
- s/p bedside debridement 04/10. Wound cx: few skin gabino.
- s/p OR debridement 04/13.
Appreciate surgeon for sending deep tissue cx's - ESBL-Klebsiella (sensitive to Zosyn), Enterococcus
- Wound vac in place. Eventual flap
- Agree with diverting colostomy.
- DC Vancomycin, cefepime, metronidazole pending OR cx data
- Start Zosyn 3.375 IV q6h x 6 weeks through 05/25/24
- Follow weekly CBC, CMP, CRP while on Zosyn.
#Additional Past Medical History:
neurogenic bladder history of self cath prior to surgery January 2024 now with chronic Ramos catheter.
malignant melanoma of skin right forearm s/p resection
glaucoma
blind left eye
aniridia bilateral eyes
HLD
Left femur repair January 2024 [facility]
tethered cord syndrome 10-20 years ago repair with laminectomy
Appendectomy
Tonsillectomy
Cholecystectomy
Chief Complaint
-: Other (Sacral decubitus)
Subjective / Review of Systems
No new complaints.
Vital Signs / Physical Exam
Vital Signs
Vital Signs
Temp Pulse Resp BP Pulse Ox
98.4 F 77 16 121/57 94
04/15/24 07:44 04/15/24 07:44 04/15/24 07:44 04/15/24 07:44 04/15/24 09:33
Physical Exam
Constitutional: No Acute Distress and Comfortable
Gastrointestinal: Soft, Non Tender and Non Distended
Genito-Urinary: Ramos and Clear Urine
Extremities: Negative Edema
Neurological: AO x 3
Objective Data
Lab Data
Lab Results
04/15/24 05:25
04/15/24 05:25
ESR 65 mm/hour (0-20) H 04/11/24 07:07
Estimated Creat Clear 71 ml/min 04/15/24 05:25
Lactic Acid Cancelled 04/09/24 21:30
Total Bilirubin 0.4 mg/dl (0.2-1.3) 04/12/24 05:34
AST 17 U/L (14-36) 04/12/24 05:34
ALT < 10 U/L (0-35) 04/12/24 05:34
Alkaline Phosphatase 98 U/L (38-126) 04/12/24 05:34
C-Reactive Protein 131.20 mg/L (0.0-10.00) H 04/11/24 07:07
Most recent labs reviewed.
Micro Results:
04/13/24 19:27 Tissue Culture - Preliminary
Ulcer Klebsiella pneumoniae-ESBL
Enterococcus species
Gram Stain - Final
04/13/24 19:27 Wound Culture - Preliminary
Ulcer Klebsiella pneumoniae-ESBL
Gram Stain - Preliminary
04/09/24 17:30 Blood Culture - Final
Blood/Venous No Growth - Final Report
04/09/24 17:30 Blood Culture - Final
Blood/Venous No Growth - Final Report
04/13/24 19:27 Anaerobic Culture - Preliminary
Ulcer Culture pending. Anaerobic cultures are examined after 3
days incubation. Additional information to follow.
04/10/24 06:17 MRSA Screen - Final
Nose Staph aureus MRSA
04/10/24 12:05 Wound Culture - Final
Sacral Gram Stain - Final
04/09/24 17:27 Wound Culture - Final
Sacral Gram Stain - Final
5/10/24 CT pelvis with IV contrast: Moderate fecal material throughout the colon and in the rectum suggesting impaction. Right buttocks wound as described above. No associated findings to suggest osteomyelitis nor abscess formation. Associated
edematous change.
--- NOTE | 2024-04-15 10:58 | PHA.VAN.FU ---
Vancomycin Assessment / Plan
- Assessment
Renal Function: SCR Increasing (slightly increased 0.5-->0.7 and BUN slightly increased)
WBC's are: WNL
In the past 24 hrs, patient has been: Afebrile
Vancomycin discontinued but provided the following patient-specific PK prior to d/c:
- Assessment - Therapeutic Drug Monitoring
Extrapolated Cmax (mcg/mL): 28.9
Peak level was drawn: Appropriately (drawn ~1.8 H after end of previous infusion)
Extrapolated Cmin (mcg/mL): 12.5
Trough Drawn: Appropriately
Levels were drawn: At steady state (Levels drawn around 3rd dose of new regimen, day 6 overall. May have additional accumulation but would expect to be slight)
Calculated AUC (mcg*h/mL): 471
Calculated ke: 0.0374
Calculated half life (H): 18.5
Calculated Vd (L): 85 (1 L/kg)
Calculated Vanc CL (ml/min): 53
Levels drawn as trough --> dose --> peak rather than dose --> peak --> trough --> dose given potential discharge
Patient-specific PK extrapolated as if drawn as peak--> trough without a dose in between so may have reduced accuracy in calculations
Half-life stable compared to previous calculations - expect minimal additional accumulation
Vancomycin has since been discontinued but would be appropriate to initiate Vanc 1500mg Q24H, if needed in the future
- Follow Up
vancomycin discontinued
Vancomycin Follow UP
- -
Patient Age: 78
Patient Sex: Female
Vancomycin Day #: 6
Indication: Skin And Soft Tissue
Requesting Provider: Eliu Monahan / Dr. Bee
Pertinent Antimicrobial Allergies:
no pertinent antibiotic allergies
Height / Weight:
Height 5 ft 3 in
Actual Weight 85.304 kg
IBW in k.4
Adjusted BW in k.6
Pertinent Past Medical History: BMI~33,L Femur fx repair 02/21, chronic de leon, non-healing sacral wound
- Vital Signs / Lab Results
Temp Pulse Resp BP Pulse Ox
98.4 F 77 16 121/57 94
04/15/24 07:44 04/15/24 07:44 04/15/24 07:44 04/15/24 07:44 04/15/24 09:33
Lab Results - Hematology
04/13/24 04/15/24
05:47 05:25
WBC 6.3 7.4
Lab Results - Chemistry
04/13/24 04/15/24
05:47 05:25
BUN 13 23 H
Creatinine 0.5 L 0.7
Estimated Creat Clear 83 71
Microbiology Results
04/13/24 19:27 Tissue Culture - Preliminary
Ulcer Klebsiella pneumoniae-ESBL
Enterococcus species
Gram Stain - Final
04/13/24 19:27 Wound Culture - Preliminary
Ulcer Klebsiella pneumoniae-ESBL
Gram Stain - Preliminary
04/09/24 17:30 Blood Culture - Final
Blood/Venous No Growth - Final Report
04/09/24 17:30 Blood Culture - Final
Blood/Venous No Growth - Final Report
04/13/24 19:27 Anaerobic Culture - Preliminary
Ulcer Culture pending. Anaerobic cultures are examined after 3
days incubation. Additional information to follow.
Therapeutic Drug Monitoring
Vancomycin Peak 27.0 ug/ml (18-26) H 04/15/24 09:59
Vancomycin Trough 12.5 ug/ml (5-20) 04/15/24 05:25
--- NOTE | 2024-04-15 11:42 | CM ---
CM updated that patient would need to return to [facility] with IV antibiotics for 6 weeks. CM updated admissions at [facility] and requested copy of the IV script from ID. CM will fax to facility and per Admissions PICC is able to be taken care of.
Admissions indicated that patient would be able to return when medically appropriate and bed was available. CM will continue to follow for discharge planning needs.
Plan; return to SNF with wound vac and IV antibiotics; pending PICC
[2024-04-15] MEDS: ZOSYN 50 IV ×2 (12:48→17:13)
--- NOTE | 2024-04-15 13:01 | VATNOTE ---
PICC insertion: Multiple vessels cannulated in right arm, unable to fully advance guidewire. Moved to left arm and placed picc without complication.
[2024-04-15 15:36] VITALS: BP 119/59
[2024-04-15] MEDS: LOVENOX 40 MG SC (17:13)
[2024-04-15] MEDS: MIRALAX 17 GRAMS PO (21:01)
[2024-04-15] MEDS: LIDOCAINE 4% PATCH 1 PATCH TOPICAL (21:01)
[2024-04-15 23:00] VITALS: BP 101/49
[2024-04-16] MEDS: ZOSYN 50 IV ×3 (06:00→12:08)
[2024-04-16 08:01] VITALS: BP 124/60
[2024-04-16] MEDS: SENOKOT 8.59999999999999964 MG PO (08:04)
[2024-04-16] MEDS: ROXICODONE 7.5 MG PO ×3 (08:05→15:13)
[2024-04-16] MEDS: DITROPAN 5 MG PO (08:06)
[2024-04-16] MEDS: RESTASIS 0.05% OPHTHALMIC EMULSION 1 DROPS BOTH EYES (08:06)
[2024-04-16] MEDS: TYLENOL 1000 MG PO ×2 (08:06→15:15)
[2024-04-16] MEDS: PRED FORTE 1% EYE DROPS 1 DROP RIGHT EYE ×2 (08:07→12:08)
[2024-04-16] MEDS: VISBIOME 2 CAP PO (08:07)
[2024-04-16] MEDS: DAKIN'S SOLUTION 0.125% 1/4 STRENGTH TOPICAL (08:08)
[2024-04-16] MEDS: LOPID 600 MG PO (08:10)
--- NOTE | 2024-04-16 08:42 | W.DS.TRANS ---
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
-
Discharge Instructions:
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
ESBL�Klebsiella, Enterococcus/sensitive to Zosyn
Wound VAC/for eventual flap closure
Neurogenic bladder with indwelling Ramos
catheter
History of tethered cord syndrome
Diet Regular
Activity As tolerated
Instructions:
Stand-Alone Forms:
Changes to Home Medications: Yes
Discharge Medications:
DC Medications w/original date entered in [facility]
acetaminophen 325 mg tablet 650 mg PO Q6H PRN general discomfort/fever>100.4 04/09/24
cholestyramine-aspartame 4 gram oral powder for susp in a packet (Cholestyramine Light) 4 g PO DAILY Gastrointestinal Issue 04/09/24
collagenase clostridium histo. 250 unit/gram topical ointment (Santyl) 1 applic topical DAILY Skin Issues 04/09/24
cyclosporine 0.05 % eye drops in a dropperette 1 drp BOTH EYES BID Eye Condition 04/09/24
docusate sodium 100 mg capsule 100 mg PO BID Constipation 04/09/24
gemfibrozil 600 mg tablet 600 mg PO DAILY High Cholesterol 04/09/24
lidocaine 4 % topical patch 1 patch topical HS lower back 04/09/24
oxybutynin chloride 10 mg tablet,extended release 24 hr 10 mg PO DAILY Urinary Issue 04/09/24
prednisolone acetate 1 % eye drops,suspension 1 drp RIGHT EYE QID Eye Condition 04/09/24
sennosides 8.6 mg tablet (senna) 8.6 mg PO BID Constipation 04/09/24
simethicone 80 mg chewable tablet 80 mg PO Q6H PRN gas 04/09/24
white petrolatum-mineral oil eye ointment 1 applic BOTH EYES DAILY Eye Condition 04/09/24
bisacodyl 10 mg rectal suppository 10 mg WV [id number] PRN constipation #12 ea 04/16/24
enoxaparin 40 mg/0.4 mL subcutaneous syringe 40 mg (0.4 mL) SC QPM #4 mL 04/16/24
oxycodone 5 mg tablet 7.5 mg (1.5 x 5 mg) PO Q8 #20 tabs 04/16/24
piperacillin-tazobactam 3.375 gram/50 mL dextrose(iso-os) IV piggyback (Zosyn) 3.375 g (56.25 mL) IV Q6H Infection #1,200 mL 04/16/24
polyethylene glycol 3350 17 gram oral powder packet (HealthyLax) 17 g PO HS #30 ea 04/16/24
sennosides 8.6 mg-docusate sodium 50 mg tablet (Stool Softener-Stimulant Laxative) 1 tab PO BIDPRN PRN constipation #14 tabs 04/16/24
sodium hypochlorite 0.125 % solution (Dakin's Solution) 1 applic topical BID #473 mL 04/16/24
Home Medication Changes
oxycodone 5 mg tablet 7.5 mg (1.5 x 5 mg) PO Q8 #20 tabs 04/16/24
piperacillin-tazobactam 3.375 gram/50 mL dextrose(iso-os) IV piggyback (Zosyn) 3.375 g (56.25 mL) IV Q6H Infection #1,200 mL 04/16/24
polyethylene glycol 3350 17 gram oral powder packet (HealthyLax) 17 g PO HS #30 ea 04/16/24
sennosides 8.6 mg-docusate sodium 50 mg tablet (Stool Softener-Stimulant Laxative) 1 tab PO BIDPRN PRN constipation #14 tabs 04/16/24
sodium hypochlorite 0.125 % solution (Dakin's Solution) 1 applic topical BID #473 mL 04/16/24
Pending Results: No
Total time spent discharging patient (in min): 45
[2024-04-16] MEDS: QUESTRAN 4 GRAM PO (09:18)
--- NOTE | 2024-04-16 09:37 | CM ---
Addendum entered by Mary Kay Beck 04/16/24 13:35:
Transport arranged for 5PM
Facility aware
Pt aware - she reports she will text her son
Addendum entered by Mary Kay Beck 04/16/24 11:01:
Notified pt ready for discharge
Notified Karen at [facility]
Plan - Return to [facility]
R - [phone]
F - [phone]
Original Note:
Case management following for d/c planning
Sent PICC line info including chest x-ray and wound care notes to Karen from [facility] via fax [phone]
Plan - transfer to [facility] when medically stable
--- NOTE | 2024-04-16 11:54 | W.DCSUMMARY ---
Discharge Summary
Discharge Data
Date of Admission: 04/09/24
Date of Discharge: 04/16/24
-
Pending Results: No
Hospital Course
This is a 78-year-old female resident of [place] has been suffering from a stage IV sacral decubitus with wound noted to have involving the down to bone with necrosis and suspected osteomyelitis on presentation she has a history of chronic
neurogenic bladder and had been self-catheterization until she was required to undergo a left femur fracture repair in January at [facility] and was noted to have the sacral wound at that time and became foul-smelling and developed a
temperature prompting evaluation and had been unable to weight-bear and/or stand as a result of late. Past medical history includes a history of malignant melanoma of the skin of the right forearm anemia on chronic basis blind in her left eye
lymphedema history obesity and a history of tethered cord syndrome 10 to 20 years ago requiring repair with laminectomy but now presented with a chronic Ramos catheter at time of presentation.
Subspecialty services involved in her care including the general surgery service infectious disease service and psychiatry service.
She had bedside debridement by general surgery on 10 April with minimal results and initial skin gabino showing no growth she will underwent further debridement in the OR on 13 April this time growing out ESBL Klebsiella and Enterococcus and after ID
consultation and wound VAC placement plan is for a 6-week course of antibiotics with Zosyn at 3.375 mg IV every 6 hours until and through 25 May 2024 she will have weekly CBC CMP and CRP while she is on Zosyn and show she will continue with wound
VAC for a look toward eventual flap closure that she is now in agreement with along with probable diverting colostomy
Imaging throughout during her stay showed a CT scan of the pelvis with IV contrast::; Moderate fecal material throughout the colon and in the rectum suggesting impaction. Right buttocks wound as described above. No associated findings to suggest
osteomyelitis nor abscess formation. Associated edematous change./He will be essential in her nursing care to keep the area clean and avoid swelling from any fecal material and continuation of her chronic Ramos catheter
Wound Care Instructions
Sacrum NPWT black foam to 125mmhg change MWF.
When discharged to SNF remove vac dressing and apply saline WTD dressing until facility can apply own vac.
Air mattress
Follow up at wound care center call for an appointment.
Discharge Plan
-
Patient Disposition: Care Home/SNF
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
ESBL�Klebsiella, Enterococcus/sensitive to Zosyn
Wound VAC/for eventual flap closure
Neurogenic bladder with indwelling Ramos catheter
History of tethered cord syndrome
Diet: Regular
Activity: As tolerated
Activity Restrictions/Additional Instructions:
Continue Zosyn 3.375 IV q6h x 6 weeks through 05/25/24
Follow weekly CBC, CMP, CRP while on Zosyn.
Wound Care Instructions
Sacrum NPWT black foam to 125mmhg change MWF.
When discharged to SNF remove vac dressing and apply saline WTD dressing until facility can apply own vac.
Air mattress
Follow up at wound care center call for an appointment.
Referrals:
Celso Pepper MD [Family Provider] -
Prescriptions:
New
bisacodyl 10 mg Suppository
10 mg NV [id number] PRN (Reason: constipation) Qty: 12 0RF
Dakin's Solution 0.125 % Solution
1 applic topical BID Qty: 473 0RF
enoxaparin 40 mg/0.4 mL Syringe
40 mg SC QPM Qty: 4 0RF
polyethylene glycol 3350 [HealthyLax] 17 gram Powder In Packet
17 g PO HS Qty: 30 0RF
oxycodone 5 mg Tablet
7.5 mg PO Q8 Qty: 20 0RF
Zosyn in dextrose (iso-osm) 3.375 gram/50 mL Piggyback
3.375 g IV Q6H Qty: 1200 0RF
sennosides-docusate sodium [Stool Softener-Stimulant Laxat] 8.6-50 mg Tablet
1 tab PO BIDPRN PRN (Reason: constipation) Qty: 14 0RF
Continued
sennosides [senna] 8.6 mg Tablet
8.6 mg PO BID
acetaminophen 325 mg Tablet
650 mg PO Q6H PRN (Reason: general discomfort/fever>100.4)
lidocaine 4 % Adhesive Patch,Medicated
1 patch TOPICAL HS
oxybutynin chloride 10 mg Tablet Extended Release 24hr
10 mg PO DAILY
white petrolatum-mineral oil Ointment
1 applic BOTH EYES DAILY
prednisolone acetate 1 % Drops,Suspension
1 drp RIGHT EYE QID
gemfibrozil 600 mg Tablet
600 mg PO DAILY
docusate sodium 100 mg Capsule
100 mg PO BID
Santyl 250 unit/gram Ointment
1 applic TOPICAL DAILY
Patient Comments:
04/09/2024: apply to sacro gluteal wound
simethicone 80 mg Tablet,Chewable
80 mg PO Q6H PRN (Reason: gas)
cyclosporine 0.05 % Dropperette
1 drp BOTH EYES BID
cholestyramine-aspartame [Cholestyramine Light] 4 gram Powder In Packet
4 g PO DAILY
Discontinued
oxycodone 5 mg Tablet
5 mg PO Q8H
Discharge Orders:
Discharge Patient (As Directed); Ordered 04/16/24
Ordered By: Chilo Bueno
Discharge Date and Time
Print Language: AMHARIC
--- NOTE | 2024-04-16 14:21 | WOUNDNOTE ---
RAUL RN NOTE: Patient being discharged today to [facility]. Nurse Stephie aware that upon discharge, to remove wound vac dressing and apply saline wet to dry dressing. Asked nurse to place in soiled utility rm for [employer] pickup.
[2024-04-16 15:52] VITALS: BP 112/58
== END 2024-04-16 18:00 | DRG 571 ==
LOC: 3 WEST ACU 20:17
PROVIDERS: Clinical Nurse Specialist Family Health; Family Medicine; Nurse Practitioner; Radiology Diagnostic Radiology; Surgery; ADMITTING PHYSICIAN Internal Medicine; ATTENDING PHYSICIAN Internal Medicine; CONSULT PHYSICIAN Internal Medicine Infectious Disease; EMERGENCY PHYSICIAN Emergency Medicine; FAMILY PHYSICIAN Internal Medicine; OTHER PHYSICIAN Surgery
PROC: 0QB10ZZ Excision of Sacrum, Open Approach (ICD-10-PCS; 2024-04-10)
PROC: 0JB70ZZ Excision of Back Subcutaneous Tissue and Fascia, Open Approach (ICD-10-PCS; 2024-04-13)
PROC: 02HV33Z Insertion of Infusion Device into Superior Vena Cava, Percutaneous Approach (ICD-10-PCS; 2024-04-15)
DX: L89.154 Pressure ulcer of sacral region, stage 4 (principal); E87.1 Hypo-osmolality and hyponatremia; M86.9 Osteomyelitis, unspecified; I96 Gangrene, not elsewhere classified; E78.00 Pure hypercholesterolemia, unspecified; I89.0 Lymphedema, not elsewhere classified; D64.9 Anemia, unspecified; F03.90 Unspecified dementia, unspecified severity, without behavioral disturbance, psychotic disturbance, mood disturbance, and anxiety; N31.9 Neuromuscular dysfunction of bladder, unspecified; G89.29 Other chronic pain; E66.09 Other obesity due to excess calories; R33.8 Other retention of urine; H54.62 Unqualified visual loss, left eye, normal vision right eye; B96.1 Klebsiella pneumoniae [K. pneumoniae] as the cause of diseases classified elsewhere; B95.2 Enterococcus as the cause of diseases classified elsewhere; H40.9 Unspecified glaucoma; E87.6 Hypokalemia; Q13.1 Absence of iris; Z68.33 Body mass index [BMI] 33.0-33.9, adult; Z85.820 Personal history of malignant melanoma of skin; Z87.728 Personal history of other specified (corrected) congenital malformations of nervous system and sense organs; Z88.8 Allergy status to other drugs, medicaments and biological substances; Z74.01 Bed confinement status; S72.142D Displaced intertrochanteric fracture of left femur, subsequent encounter for closed fracture with routine healing
CPT/HCPCS: 51702; 71045; 72193; 80048; 80053; 80202; 82248; 82533; 82565; 82607; 82728; 82746; 83540; 83550; 83605; 83735; 83930; 83935; 84100; 84300; 84443; 84520; 85025; 85027; 85652; 86140; 87040; 87070; 87075; 87077; 87147; 87176; 87186; 87205; 96361; 96365; 96375; 96376; 97163; 97166; 97530; 97535; 99285; Q9967

== ENCOUNTER 2024-04-26 17:58 | Observation (INO) | payer MEDICARE, SELFPAY ==
[2024-04-26] VITALS (10 sets, daily range): BP systolic 98–137; BP diastolic 53–62; BMI 33.2; BMI 32.1
[2024-04-26 15:36] LABS: % Basophils 0.4 % (0-2); % Eosinophils 1.9 % (0-6); % Immature Granulocytes 0.6 % (0-0.5); % Lymphocytes 32.6 % (20.5-51.1); % Monocytes 8.2 % (1.7-9.3); % Neutrophils 56.3 % (42.2-75.2); Absolute Eosinophils 0.2 10^3/uL (0-0.7); Absolute Immature Granulocytes 0.1 10^3/uL (0-0.05); Absolute Lymphocytes 3.2 10^3/uL (1.2-3.4); Absolute Monocytes 0.8 10^3/uL (0.1-0.6); Absolute Neutrophils 5.5 10^3/uL (1.4-6.5); Hematocrit 27.1 % (37.0-47.0); Hemoglobin 8.7 g/dL (12.0-16.0); Mean Corp Hgb Conc. 32.1 g/dL (33.0-37.0); Mean Corpuscular Hgb 27.2 pg (27.0-31.0); Mean Corpuscular Volume 84.7 fL (81.0-99.0); Nucleated Red Blood Cells % 0 %; Platelet Count 292 10^3/uL (130-400); White Blood Cell Count 9.7 10^3/uL (4.8-10.8)
[2024-04-26 15:52] LABS: ALT (SGPT) 10 U/L (0-35); AST (SGOT) 17 U/L (14-36); Albumin 2.3 g/dl (3.5-5.0); Alkaline Phosphatase 168 U/L (38-126); Blood Urea Nitrogen 11 mg/dl (7-17); Calcium 8.1 mg/dl (8.4-10.2); Carbon Dioxide 25 mmol/L (22-30); Chloride 109 mmol/L (98-107); Estimated Creatinine Clearance 82 ml/min; Glucose 105 mg/dl (70-99); Sodium 138 mmol/L (135-145); Total Bilirubin 0.3 mg/dl (0.2-1.3); Total Protein 5.5 g/dl (6.3-8.2); eGFR > 60.00
--- NOTE | 2024-04-26 16:41 | ED.GENMED ---
History of Present Illness
General
Chief Complaint: Wound Check/Suture Removal
Source: patient
Exam Limitations: none
Time Seen by Provider: 04/26/24 13:27
Nursing documentation reviewed up to this point in time: agreed with
Travel History
Have you had any contact with someone who has COVID-19?: No
Do you have any symptoms of coronavirus? Fever > 100 degrees, chills, cough, shortness of breath, sore throat, loss of taste or smell, muscle aches, or headache?: No
History of Present Illness
History of Present Illness:
78-year-old female presents emergency ferment due to sacral pain, weakness and leaking from wound VAC. She is incontinent of stool.
Past History
Past History
ED Past Medical History: Hypercholesterolemia and Other (Cauda equina, congenital malformations of spinal cord, neurogenic bladder, nonhealing ulcer, anemia, ligament melanoma)
ED Past Surgical History: Orthopedic (Hip surgery)
Social History
Tobacco: Non-smoker
Alcohol: None
Drug: None
Review of Systems
Review of Systems
Allergies reviewed?: Yes
All Other Systems: Not applicable
Constitutional: Reports no symptoms
EENT: Reports no symptoms
Respiratory: Reports no symptoms
Cardiac: Reports no symptoms
ABD/GI: Reports other (Stool incontinence)
: Reports no symptoms
Musculoskeletal: Reports no symptoms
Skin: Reports other (Sacral wound)
Neurological: Reports weakness and numbness
Endocrine: Reports no symptoms
Hematologic/Lymphatic: Reports no symptoms
Phy Exam
Physical Exam
Physical Exam:
.
Physical Exam
General: Afebrile, chronic ill appearance
Neck: supple. no meningeal signs. normal posterior pharynx
Heart: s1/s2 regular rate and rhythm, no murmur. equal radial
pulses.
HEENT: Pupils equal round reactive to light, EOMI
Lungs: no acute respiratory distress. clear bilaterally
Abdomen: normal bowel sounds. not tender. no CVAT
Neuro: alert and oriented. no focal neurological deficits cranial nerves II through XII intact
Skin: no rash, large sacral wound covered in stool, stool is impacted upon wound, stool covered wound VAC
Psychiatric: well kept. interactive and cooperative
Extremities: no edema. no calf tenderness. negative homans. good distal pulses
Course
Orders/Labs/Results
Orders:
Orders
04/26/24 13:33
EKG [Electrocardiogram (*1)] Urgent
Reason for Study: CAD
EKG- Treatment ONCE
04/26/24 14:22
CXR Port [CR Chest Portable - 1 View] Urgent
Comment:
Reason For Exam: verify PICC placement
Reason Study Needs to be Portable: Unable to Transport
04/26/24 15:22
Complete Blood Count/With Diff Urgent
Comprehensive Metabolic Panel Urgent
Magnesium Urgent
Comment: MAG ADDED ON BY FLOOR 4:30PM 04-26-24
04/26/24 16:27
Add On- LAB Urgent
Tests Added?: magnesium
04/26/24 16:40
Potassium Chloride 10% Elixir [KCl Elixir] 40 meq PO NOW STA
04/26/24 16:44
Potassium Chloride [KCl] 40 meq 0.9% Sodium Chloride 250 ml [Nss] 250 ml IV NOW
04/26/24 17:40
Admit/Transfer Patient As Directed
Co-Sign Provider:
Level of Care: Observation services
Assign to:: Medical/Surgical
Physician / Group: carlos pastor
Diagnosis: hypokalemia chr sacral wound/wound vac, r gluteal wound chr
Code Status As Directed
Resuscitation Status: Full Code
Abnormal Lab Results
04/26/24
15:22
RBC 3.20 L 10^6/uL
(4.20-5.40)
Hgb 8.7 L g/dL
(12.0-16.0)
Hct 27.1 L %
(37.0-47.0)
MCHC 32.1 L g/dL
(33.0-37.0)
RDW 15.0 H %
(11.5-14.5)
Abs Immat Gran (auto) 0.1 H 10^3/uL
(0-0.05)
Absolute Monos (auto) 0.8 H 10^3/uL
(0.1-0.6)
Immature Gran % 0.6 H %
(0-0.5)
Potassium 3.0 L mmol/L
(3.5-5.1)
Chloride 109 H mmol/L
(98-107)
Creatinine 0.5 L mg/dL
(0.6-1.0)
Glucose 105 H mg/dl
(70-99)
Calcium 8.1 L mg/dl
(8.4-10.2)
Alkaline Phosphatase 168 H U/L
(38-126)
Total Protein 5.5 L g/dl
(6.3-8.2)
Albumin 2.3 L g/dl
(3.5-5.0)
04/26/24 15:22
04/26/24 15:22
Vital Signs
Initial and Last Documented VS:
Initial Vital Signs
Pulse Resp
79 22
04/26/24 13:30 04/26/24 13:30
Last Documented Vital Signs
Temp Pulse Resp BP Pulse Ox
98.1 F 78 16 133/58 96
04/26/24 13:35 04/26/24 17:00 04/26/24 16:01 04/26/24 17:00 04/26/24 17:00
MDM/Problems Addressed
Differential Diagnosis Includes:
Infected sacral wound, hypokalemia, anemia
MDM/Problems Addressed:
78-year-old female with hypokalemia, anemia, sacral decubitus wound
Chronic conditions affecting care: Neurological disorder (Tethered cord and cauda equina syndrome)
Acute Exacerbation and/or Progression of Chronic Illness: Neurological disorder (Tethered cord and cauda equina syndrome) and Other (, Sacral decubitus wound, stool incontinence)
*Pulse Oximetry
Patient hypoxic: no
*EKG
Interpreted by ED Provider?: Yes
EKG Intrepretation Date: 04/26/24
EKG Intrepretation Time: 13:32
Interpretation: abnormal
Comparison EKG: no comparison EKG present
Heart Rate: 71
Rate: normal
Rhythm: sinus
[place]: left axis deviation
Interval: normal interval
QRS Pattern: right bundle branch block
Ischemia: no ischemia
*Air Conditioning Technician Interpretation
Rate: normal
Interpretation: normal
Heart Rate: 70
Rhythm: sinus
*Critical Care Note
Total Time (30-74mins, 75-104mins- exclusive of procedures): Not Applicable
Data Reviewed
Review of Other/Old Records Reveals: Labs and Operative Reports
Patient Management
Social determinants of health affecting care: Living situation
Discussion with other providers: Hospitalist
Escalation/DeEscalation of care consider admission/obs:
admit indicated
ED Attending Note
-
Portions of this chart may have been created with voice recognition software.� Occasional wrong word or��sound alike� substitutions may have occurred due to the inherent limitations of voice recognition software.
Discharge Plan
Departure
Patient Disposition: Admit
Date of Disposition: 04/26/24
Time of Disposition: 16:24
Admit to: Telemetry
Presentation/result/management discussed w/ accepting MD/DO: Hospitalist
Patient with high blood pressure during this ER visit?: No
Condition: Fair
Discharge Problem:
Pressure ulcer of sacral region, stage 4, Hypokalemia
Interventions
Interventions:
*Risk Screen - Suicide Last Done: 04/26/24 14:19
*General Assessment Last Done: 04/26/24 14:24
*Neglect/Abuse Screening Last Done: 04/26/24 14:19
ED- Fall Risk Assessment Last Done: 04/26/24 14:19
*ED COVID-19 Vaccine History Last Done: 04/26/24 14:13
ED-Skin Assessment Last Done: 04/26/24 14:26
--- NOTE | 2024-04-26 17:00 | HPS.HSE ---
Family Physician
<JOE Tate - Last Filed: 04/26/24 17:40>
-
Family Physician: Celso Pepper
Chief Complaint
<JOE Tate - Last Filed: 04/26/24 17:40>
-
Patient unhappy with wound care at [facility] rehab
History of Present Illness
78-year-old female from [facility] home who states she is unhappy with wound care at [facility] and was wondering if there is another rehab that had better wound care she can be placed at and guaranteed a better wound care team. I
advised the patient I am not familiar with other wound care teams associated with rehabs or other care ability and I cannot guarantee any specific treatment. In the ER she was noted to be hypokalemic with a chronic stage IV sacral wound left with a
wound VAC in place. She also has a chronic right-sided buttocks wound she reports pain is still the same not worse no increased drainage.
She also reports a chronic right-sided buttocks wound. She denies headache, fever, chills, cramps, chest pain, palpitations, shortness breath, cough, abdominal pain, nausea, vomiting, diarrhea. She has yellow urine draining from her chronic Ramos
catheter present on admission.
She had history of a left femur fracture repair January 2024 at [facility] followed by a sacral wound that was not healing. She was admitted to [facility] 04/09 - 04/16/2024 with stage IV sacral decub to bone with necrosis and
suspected osteomyelitis that required debridement on April 10 with wound VAC placement April 13 and a 6 weeks course of antibiotics with IV Zosyn 3.375 mg through May 25, 2024 via PICC line left arm. Cultures of her sacral wound grew out ESBL
Klebsiella and Enterococcus. She has history of chronic neurogenic bladder had been prior self cathing up until January left femur repair when a chronic Ramos catheter was placed. 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
repair, laminectomy was walking prior to surgery, history of anemia, iron deficiency anemia, malignant melanoma of the skin right forearm, glaucoma, blind left eye glaucoma, aniridia bilateral eyes, lymphedema, HLD, obesity
Medical History
<JOE Tate - Last Filed: 04/26/24 17:40>
Past Medical History
Past Medical History: Reports Other
Additional Past Medical History:
Anemia
neurogenic bladder history of self cath prior to surgery January 2024 now with chronic Ramos catheter.
malignant melanoma of skin right forearm
glaucoma
blind left eye
aniridia bilateral eyes
HLD
obesity
tethered cord syndrome 10-20 years ago repair with laminectomy was walking prior to surgery
Past Surgical History: Reports Other
Additional Past Surgical History:
Laminectomy lumbar
Left femur repair January 2024 [facility]
Melanoma removal right forearm
Appendectomy
Tonsillectomy
Cholecystectomy
Social History
Tobacco: Non-smoker
Alcohol: None
Drug: None
Personal:
Living: Group Home ([facility] with )
Employment: Retired
Family History
Family History: Not pertinent
Allergies / Home Medications
Allergies reflects when Allergies were last updated in [employer].
Home Medications with original date entered in [employer]
Allergy/Medication List:
Allergies
Allergy/AdvReac Type Severity Reaction Status Date / Time
brimonidine Allergy Unknown Verified 04/26/24 14:26
Home Medications
acetaminophen 325 mg tablet 975 mg PO Q8 Pain 04/09/24
cholestyramine-aspartame 4 gram oral powder for susp in a packet (Cholestyramine Light) 4 g PO DAILY Gastrointestinal Issue 04/09/24
collagenase clostridium histo. 250 unit/gram topical ointment (Santyl) 1 applic topical DAILY gluteal wound 04/09/24
cyclosporine 0.05 % eye drops in a dropperette 1 drp BOTH EYES BID Eye Condition 04/09/24
docusate sodium 100 mg capsule 100 mg PO BID Constipation 04/09/24
gemfibrozil 600 mg tablet 600 mg PO DAILY High Cholesterol 04/09/24
lidocaine 4 % topical patch 1 patch topical HS lower back 04/09/24
oxybutynin chloride 10 mg tablet,extended release 24 hr 10 mg PO DAILY Urinary Issue 04/09/24
prednisolone acetate 1 % eye drops,suspension 1 drp RIGHT EYE QID Eye Condition 04/09/24
sennosides 8.6 mg tablet (senna) 8.6 mg PO BID Constipation 04/09/24
simethicone 80 mg chewable tablet 80 mg PO Q6H PRN gas 04/09/24
white petrolatum-mineral oil eye ointment 1 applic BOTH EYES DAILY Eye Condition 04/09/24
bisacodyl 10 mg rectal suppository 10 mg [place] [id number] PRN constipation #12 ea 04/16/24
enoxaparin 40 mg/0.4 mL subcutaneous syringe 40 mg (0.4 mL) SC QPM #4 mL 04/16/24
polyethylene glycol 3350 17 gram oral powder packet (HealthyLax) 17 g PO HS #30 ea 04/16/24
sennosides 8.6 mg-docusate sodium 50 mg tablet (Stool Softener-Stimulant Laxative) 1 tab PO BIDPRN PRN constipation #14 tabs 04/16/24
acetaminophen 325 mg tablet (Tylenol) 650 mg PO Q6H PRN GENERAL DISCOMFORT 04/26/24
magnesium hydroxide 400 mg/5 mL oral suspension (Milk of Magnesia) 2,400 mg PO HSPRN PRN NO BM X 3 DAYS 04/26/24
oxycodone 5 mg tablet 7.5 mg PO Q8HPRN PRN SEVERE PAIN 04/26/24
piperacillin-tazobactam 3.375 gram/50 mL dextrose(iso-os) IV piggyback (Zosyn) 3.375 g IV Q6 Infection 04/26/24
sodium hypochlorite 0.125 % solution (Dakin's Solution) 1 applic topical DAILY gluteal wound 04/26/24
Review of Systems
<JOE Tate - Last Filed: 04/26/24 17:40>
-
History Source: Patient
A 12 point ROS was completed and negative except as noted: Yes
Constitutional: Denies Fever, Fatigue or Chills
EENT: Denies Sore Throat or Runny Nose
Respiratory: Denies Cough or Trouble Breathing
Cardiac: Denies Chest Pain, Diaphoresis, Palpitations or Syncope
Abdomen/GI: Denies Abdominal Pain, Nausea, Vomiting or Diarrhea
: Reports Ramos (Present on admission draining yellow in color)
Musculoskeletal: Denies Joint Pain or Edema
Skin: Reports Other (Chronic right buttocks wound, wound VAC in place on left sided sacral wound, PICC line in place left upper extremity); Denies Itching or Rash
Neurological: Denies Dizzy, Headache or Weakness
Endocrine: Reports No Symptoms
Hematologic/Lymphatic: Reports No Symptoms
Psych: Reports Calm
Physical Exam
<JOE Tate - Last Filed: 04/26/24 17:40>
Vital Signs
Vital Signs
Temp Pulse Resp BP Pulse Ox
98.1 F 69 36 98/55 98
04/26/24 13:35 04/26/24 15:00 04/26/24 15:00 04/26/24 15:00 04/26/24 14:07
Physical Exam
General: Conversant; No Pain, Fever or Chills
HEENT: NormoCephalic, Anicteric, PERRLA, [place] Conjunctivae and No Ptosis
Respiratory: Clear; No Wheezes, Rales or Rhonchi
Cardiac: S1/S2 and Regular Rhythm; No Murmur, Rub, Gallop or Peripheral Edema
Breast: Deferred by me
GI: Soft, Non Tender, Non Distended, Normal Bowel Sounds and No Hepatosplenomegaly
Genito-urinary: Deferred by me and Ramos (Ramos present on admission draining yellow in color)
Musculoskeletal: No Clubbing, No Cyanosis and No Edema
Skin: Warm, Dry and Other (Chronic right buttocks wound, wound VAC in place on left sided sacral wound, PICC line in place left upper extremity, chronic right buttox wound no foul smelling drainage )
Neuro: AO x 3 and No Sensory Deficits; No Facial Droop, Tremors or Sedated
Psych: Calm
Laboratory Results
<JOE Tate - Last Filed: 04/26/24 17:40>
-
04/26/24 15:22
04/26/24 15:22
Laboratory Results
Total Bilirubin 0.3 mg/dl (0.2-1.3) 04/26/24 15:22
AST 17 U/L (14-36) 04/26/24 15:22
ALT 10 U/L (0-35) 04/26/24 15:22
Alkaline Phosphatase 168 U/L (38-126) H 04/26/24 15:22
Data Reviewed
<JOE Tate - Last Filed: 04/26/24 17:40>
-
Lab Data: Labs Reviewed by me
Impression/Plan
<JOE Tate - Last Filed: 04/26/24 17:40>
-
Impression/plan:
OBS Med surg
#Hypokalemia
K3.0
KCl rider 40 mEq given in ER
repeat bmp in am
pt/ot case mgmt consult
EKG: NSR 71 bpm, QTc 484 MS RBBB no previous EKGs available
CXR: Elevated right hemidiaphragm some right basilar opacity is again seen but decreased. Left-sided PICC line with tip in proximal SVC
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
#Recent bone necrosis suspect osteomyelitis with debridement and wound VAC placed 04/10 - 04/13/2024
BP 98/45
#Chronic right sided buttox wound
-Continue IV Zosyn 3.375 mg through May 25, 2024 per prior ID recommendations as culture grew out ESBL Klebsiella and Enterococcus via PICC line left arm
-Continue ANALYSIS INTERN oxycodone 7.5 mg every 8 hours with bowel regimen
-Continue wound VAC
#Status post intertrochanteric fracture left femur with repair January 2024 [facility]
#Recent iron deficiency anemia
#Chronic anemia�normocytic
Iron level was low with high ferritin due to inflammation was unable to give IV iron due to secondary infection recent admit
Hgb 8.7,(Hgb 9, MCV 87.5 04/09/2024 labs)
-Monitor Hgb if less than 7 will transfuse
#Tethered cord syndrome 10 to 20 years ago status post laminectomy
#Neurogenic bladder history self cath
#Patient used to self cath prior to surgery end of January
-Ramos catheter patient reports has been in since january although appears clean
Ramos catheter was changed on 04/09/2024
#HLD
-Continue gemfibrozil 600 mg daily
#Malignant melanoma skin right forearm
#Obesity due to excess calorie consumption�BMI 33.7 kg
Weight loss recommended, low-fat diet
#Glaucoma�blind left eye
-Continue prednisone drops to right eye, cyclosporine 1 drop both eyes twice daily
#Aniridia both eyes since
DVT prophylaxis
Subcu Lovenox
Full code
<Pawan Moss DO - Last Filed: 04/26/24 17:47>
-
Impression/plan:
OBS Med surg
#Hypokalemia
K3.0
KCl rider 40 mEq given in ER
repeat bmp in am
pt/ot case mgmt consult
EKG: NSR 71 bpm, QTc 484 MS RBBB no previous EKGs available
CXR: Elevated right hemidiaphragm some right basilar opacity is again seen but decreased. Left-sided PICC line with tip in proximal SVC
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
#Recent bone necrosis suspect osteomyelitis with debridement and wound VAC placed 04/10 - 04/13/2024
BP 98/45
#Chronic right sided buttox wound
-Continue IV Zosyn 3.375 mg through May 25, 2024 per prior ID recommendations as culture grew out ESBL Klebsiella and Enterococcus via PICC line left arm
-Continue ANALYSIS INTERN oxycodone 7.5 mg every 8 hours with bowel regimen
-Continue wound VAC
#Status post intertrochanteric fracture left femur with repair January 2024 [facility]
#Chronic anemia�normocytic
Iron level was low with high ferritin due to inflammation
Hgb 8.7,(Hgb 9, MCV 87.5 04/09/2024 labs)
-Monitor Hgb if less than 7 will transfuse
#Tethered cord syndrome 10 to 20 years ago status post laminectomy
#Neurogenic bladder history self cath
#Patient used to self cath prior to surgery end of January
-Ramos catheter patient reports has been in since end january although appears clean
Ramos catheter was changed on 04/09/2024
#HLD
-Continue gemfibrozil 600 mg daily
#Malignant melanoma skin right forearm
#Obesity due to excess calorie consumption�BMI 33.7 kg
Weight loss recommended, low-fat diet
#Glaucoma�blind left eye
-Continue prednisone drops to right eye, cyclosporine 1 drop both eyes twice daily
#Aniridia both eyes since
DVT prophylaxis
Subcu Lovenox
Full code
Attending note:
Patient seen and examined and discussed with OK Monahan, and I agree with her note.
Gen-AAOx3, NAD
HEENT-NC, AT, anicteric, clear oral mm
Neck-supple
CV-reg, no M, +S1/S2
Lungs-clear B/L
Abd-soft, NT, ND
Ext-no edema
Musculoskeletal-no cyanosis, clubbing
Skin-warm and dry, large sacral decubital wound without drainage, surrounding erythema
Neuro-grossly non-focal
Psych-calm, cooperative
Large sacral decubital wound infection/osteomyelitis, likely chronic -continue IV Zosyn as previous. End date May 25. Continue local wound care.
Hypokalemia -check magnesium. Replete.
Left femoral intertrochanteric fracture -repaired in January.
Neurogenic bladder -chronic Ramos catheter.
History of malignant melanoma -right forearm, resected.
Glaucoma, left eye blindness
Bilateral aniridia
Hyperlipidemia
Tethered cord syndrome -repaired 10 to 20 years ago with laminectomy
Dispo -back to senior living in a.m.
[2024-04-26 17:12] LABS: Magnesium 1.9 mg/dl (1.6-2.3)
[2024-04-26] MEDS: KCL ELIXIR 40 MEQ PO (17:23)
[2024-04-26] MEDS: KCL 270 MEQ IV (17:29)
[2024-04-26] MEDS: LOVENOX 40 MG SC (21:07)
[2024-04-26] MEDS: PRED FORTE 1% EYE DROPS 1 DROP RIGHT EYE (21:08)
[2024-04-26] MEDS: RESTASIS 0.05% OPHTHALMIC EMULSION 1 DROPS BOTH EYES (21:09)
[2024-04-26] MEDS: DITROPAN 5 MG PO (21:09)
[2024-04-26] MEDS: ZOSYN 3.375 GRAM IV (21:42)
[2024-04-26] MEDS: PRED FORTE 1% EYE DROPS RIGHT EYE (22:53)
[2024-04-27] MEDS: TYLENOL 975 MG PO ×2 (01:08→08:29)
--- NOTE | 2024-04-27 02:30 | PTCARENOTE ---
Received pt from the ED via stretcher, pocket and pulley machine operator to hospital bed. Pt arrives with K-rider infusing through R PICC, pt was recently at 04/09-04/16 and d/c'd to [facility] with it for a 6 week course of abx. Pt AAOx3, states she resides at
[facility] and does not feel she is getting appropriate wound care for a chronic sacral wound. Pt arrives with wound vac at the beside, chronic stage IV sacral wound DAVID with purulent drainage; wound cleansed with saline. Pt with wound care
consult for the AM. Pt updated on POC, oriented to unit and call cha.
[2024-04-27] MEDS: ZOSYN 3.375 GRAM IV ×3 (03:08→14:12)
[2024-04-27 04:55] LABS: % Basophils 0.5 % (0-2); % Eosinophils 2.7 % (0-6); % Immature Granulocytes 0.5 % (0-0.5); % Monocytes 9.1 % (1.7-9.3); % Neutrophils 41.2 % (42.2-75.2); Absolute Eosinophils 0.2 10^3/uL (0-0.7); Absolute Lymphocytes 2.9 10^3/uL (1.2-3.4); Absolute Monocytes 0.6 10^3/uL (0.1-0.6); Absolute Neutrophils 2.6 10^3/uL (1.4-6.5); Hematocrit 25.9 % (37.0-47.0); Hemoglobin 8.2 g/dL (12.0-16.0); Mean Corp Hgb Conc. 31.7 g/dL (33.0-37.0); Mean Corpuscular Hgb 26.8 pg (27.0-31.0); Mean Corpuscular Volume 84.6 fL (81.0-99.0); Mean Platelet Volume 9.2 fL (7.4-10.4); Nucleated Red Blood Cells % 0 %; Platelet Count 264 10^3/uL (130-400); Red Blood Cell Count 3.06 10^6/uL (4.20-5.40); Red Cell Dist. Width 15.3 % (11.5-14.5); White Blood Cell Count 6.4 10^3/uL (4.8-10.8)
[2024-04-27 05:40] LABS: Blood Urea Nitrogen 9 mg/dl (7-17); Calcium 8.4 mg/dl (8.4-10.2); Carbon Dioxide 23 mmol/L (22-30); Chloride 111 mmol/L (98-107); Estimated Creatinine Clearance 81 ml/min; Glucose 95 mg/dl (70-99); Potassium 3.6 mmol/L (3.5-5.1); Sodium 138 mmol/L (135-145); eGFR > 60.00
[2024-04-27 07:30] VITALS: BP 141/63
[2024-04-27] MEDS: DITROPAN 5 MG PO (08:28)
[2024-04-27] MEDS: REFRESH CELLUVISC GEL 1 DROPS BOTH EYES (08:28)
[2024-04-27] MEDS: QUESTRAN 4 GRAM PO (08:29)
[2024-04-27] MEDS: RESTASIS 0.05% OPHTHALMIC EMULSION 1 DROPS BOTH EYES (08:29)
[2024-04-27] MEDS: LOPID 600 MG PO (08:29)
[2024-04-27] MEDS: SANTYL OINTMENT 1 APPLIC TOPICAL (08:29)
[2024-04-27] MEDS: PRED FORTE 1% EYE DROPS 1 DROP RIGHT EYE ×2 (08:30→14:08)
[2024-04-27] MEDS: DAKIN'S SOLUTION 0.125% 1/4 STRENGTH 473 ML TOPICAL (08:31)
[2024-04-27 10:29] VITALS: BMI 32.1
--- NOTE | 2024-04-27 10:39 | WOUNDNOTE ---
RAUL RN note: Patient admitted with hypokalemia and stage 4 sacral PI.
See H&P for complete history. From [facility].
PMH: I&D of sacral wound last admission with wound vac, hip surgery, neurogenic bladder, femur fracture, glaucoma, lymphedema, malignant melanoma and congenital malformations of spinal cord.
Wound Location and type/assessment: Patient admitted with: Stage 4 sacral wound, not as clean compared to last seen, Dakin's and Santyl already on order. Patient able to turn self in bed, had large loose BM that got into sacral wound. Periwound and
perineum with incontinent associated dermatitis from frequent loose BM's. Wound vac kept leaking at [place] per report. L heel with stage 1 non blanchable red PI, R heel intact.
Appetite: Good.
Pressure redistribution devices in place: On [employer] Pro. Nurse Weeks aware that if not discharged today, to transfer patient onto [facility] air bed in hallway. Pillow placed under calves. Called SPD for Prevalon boots, nurse to apply.
Plan: Applied Santyl to base of wound with Dakin's moistened gauze. Dakin's WTD Kerlix packed into undermined area. Will order fungal powder for periwound followed by skin prep daily and fungal powder to perineum bid. Applied foam adhesives to heels
and offload when in bed with TruVue lite offloading heel boots.
Will confirm orders with hospitalist and glory Weeks. Updated care plan and will follow as needed.
Note to case management of equipment requested for discharge: Air mattress at [facility].
Recommend follow up at wound care center upon discharge.
[2024-04-27 11:37] VITALS: BP 140/60; PULSE 65; O2SAT 96
[2024-04-27 11:39] VITALS: BP 140/60; PULSE 65; O2SAT 96
--- NOTE | 2024-04-27 11:55 | W.PN.HOSP.TC ---
Today's Communication/Plan
-
Discharge
Assessment / Plan
Assessment / Plan
Gen-AAOx3, NAD
HEENT-NC, AT, anicteric, clear oral mm
Neck-supple
CV-reg, no M, +S1/S2
Lungs-clear B/L
Abd-soft, NT, ND
Ext-no edema
Musculoskeletal-no cyanosis, clubbing
Skin-warm and dry
Neuro-grossly non-focal
Psych-calm, cooperative
Large sacral decubital wound infection/osteomyelitis, likely chronic -continue IV Zosyn as previous. End date May 25. Continue local wound care.
Hypokalemia -resolved.
Left femoral intertrochanteric fracture -repaired in January.
Neurogenic bladder -chronic Ramos catheter.
History of malignant melanoma -right forearm, resected.
Glaucoma, left eye blindness
Bilateral aniridia
Hyperlipidemia
Tethered cord syndrome -repaired 10 to 20 years ago with laminectomy
Dispo -medically stable for discharge back to intermediate today. Informed case management. Outpatient follow-up.
Anticipated Discharge: Today
Subjective/Interval History
-
Date of Service: April 27, 2024
Patient seen and examined. No complaints.
Objective Data
-
Labs:
Laboratory Results
04/27/24
04:32
WBC 6.4
Hgb 8.2 L
Hct 25.9 L
Plt Count 264
Sodium 138
Potassium 3.6
Chloride 111 H
Carbon Dioxide 23
BUN 9
Creatinine 0.5 L
Glucose 95
Calcium 8.4
Vital Signs:
Vital Signs
Temp Pulse Resp BP Pulse Ox
98.9 F 69 18 141/63 95
04/27/24 07:30 04/27/24 07:30 04/27/24 07:30 04/27/24 07:30 04/27/24 07:30
Review of Systems
-
History Source: Patient
All other systems: Reviewed and negative
--- NOTE | 2024-04-27 11:59 | W.DS.TRANS ---
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
-
Discharge Instructions:
Discharge Diagnosis/Procedures Sacral wound, hypokalemia
Diet Low Cholesterol,Low Fat
Activity With assistance,As tolerated
Driving Restrictions No driving
Bathing Restrictions None
Instructions:
Stand-Alone Forms:
Changes to Home Medications: No
Discharge Medications:
DC Medications w/original date entered in [employer]
acetaminophen 325 mg tablet 975 mg PO Q8 Pain 04/09/24
collagenase clostridium histo. 250 unit/gram topical ointment (Santyl) 1 applic topical DAILY gluteal wound 04/09/24
cyclosporine 0.05 % eye drops in a dropperette 1 drp BOTH EYES BID Eye Condition 04/09/24
docusate sodium 100 mg capsule 100 mg PO BID Constipation 04/09/24
gemfibrozil 600 mg tablet 600 mg PO DAILY High Cholesterol 04/09/24
lidocaine 4 % topical patch 1 patch topical HS lower back 04/09/24
oxybutynin chloride 10 mg tablet,extended release 24 hr 10 mg PO DAILY Urinary Issue 04/09/24
prednisolone acetate 1 % eye drops,suspension 1 drp RIGHT EYE QID Eye Condition 04/09/24
sennosides 8.6 mg tablet (senna) 8.6 mg PO BID Constipation 04/09/24
simethicone 80 mg chewable tablet 80 mg PO Q6H PRN gas 04/09/24
white petrolatum-mineral oil eye ointment 1 applic BOTH EYES DAILY Eye Condition 04/09/24
bisacodyl 10 mg rectal suppository 10 mg [place] [id number] PRN constipation #12 ea 04/16/24
polyethylene glycol 3350 17 gram oral powder packet (HealthyLax) 17 g PO HS #30 ea 04/16/24
sennosides 8.6 mg-docusate sodium 50 mg tablet (Stool Softener-Stimulant Laxative) 1 tab PO BIDPRN PRN constipation #14 tabs 04/16/24
acetaminophen 325 mg tablet (Tylenol) 650 mg PO Q6H PRN GENERAL DISCOMFORT 04/26/24
cholestyramine-aspartame 4 g PO DAILY Constipation 04/26/24
magnesium hydroxide 400 mg/5 mL oral suspension (Milk of Magnesia) 2,400 mg PO HSPRN PRN NO BM X 3 DAYS 04/26/24
oxycodone 5 mg tablet 7.5 mg PO Q8HPRN PRN SEVERE PAIN 04/26/24
piperacillin-tazobactam 3.375 gram/50 mL dextrose(iso-os) IV piggyback (Zosyn) 3.375 g IV Q6 Infection 04/26/24
sodium hypochlorite 0.125 % solution (Dakin's Solution) 1 applic topical DAILY gluteal wound 04/26/24
miconazole nitrate 2 % topical powder (Miconazorb AF) 1 applic topical BID #85 grams 04/27/24
miconazole nitrate 2 % topical powder (Miconazorb AF) 1 applic topical PRN PRN SOILAGE/DRAINAGE #85 grams 04/27/24
Home Medication Changes
Pending Results: No
--- NOTE | 2024-04-27 12:07 | CM ---
Addendum entered by Vy Bedoya 04/27/24 12:47:
1400 pickup
SNF aware of air mattress recommendation
Original Note:
CM reviewed pt with Dr. Moss- pt ready for dc
CM met with pt bedside
Pt from [facility] - unsure if ST or LT resident
Pt has been sharing room with her spouse who is LTC resident with dementia
Pt has a wound vac at facility
Lengthy meeting with pt who had questions regarding LTC planning and financials for herself and spouse
Encouraged her to work with SNF SW to transition care
Family has already hired an eligibility technician to assist with LTC planning
Pt is OBS- MEEKS completed verbally
Copy provided
Pt in agreement with dc back to [facility] today
Update to Karen who noted pt is a bed-hold and converting to LTC, MA application pending
Clinicals sent via [facility]
Transport forms completed and on chart
Discharge Dispositin- return [facility] via ambulance
Phone- [phone] Fax- [phone]
--- NOTE | 2024-04-27 13:49 | PTCARENOTE ---
Called [facility]acey gore to give report 1340. Spoke with Gabriella. supervisory air intercept controller time is set for 1530. PICC line will remain in place for pt to continue course of antibiotics. Chronic de leon. Wound vac and accessories will be sent back with patient. New wound
care orders relayed in report. Paperwork will be faxed over via community living instructor. Stacey Quiroz
== END 2024-04-27 16:36 ==
LOC: 2 NORTH 17:58
PROVIDERS: Clinical Nurse Specialist Family Health; ADMITTING PHYSICIAN Hospitalist; EMERGENCY PHYSICIAN Emergency Medicine; FAMILY PHYSICIAN Internal Medicine
DX: L89.154 Pressure ulcer of sacral region, stage 4 (principal); R53.1 Weakness; M46.28 Osteomyelitis of vertebra, sacral and sacrococcygeal region; L08.9 Local infection of the skin and subcutaneous tissue, unspecified; G89.29 Other chronic pain; R15.9 Full incontinence of feces; D50.9 Iron deficiency anemia, unspecified; I25.10 Atherosclerotic heart disease of native coronary artery without angina pectoris; E87.6 Hypokalemia; E78.00 Pure hypercholesterolemia, unspecified; Q06.8 Other specified congenital malformations of spinal cord; G83.4 Cauda equina syndrome; I45.10 Unspecified right bundle-branch block; H40.9 Unspecified glaucoma; H54.62 Unqualified visual loss, left eye, normal vision right eye; E66.09 Other obesity due to excess calories; Z68.32 Body mass index [BMI] 32.0-32.9, adult; Z90.49 Acquired absence of other specified parts of digestive tract; Z88.8 Allergy status to other drugs, medicaments and biological substances; Z79.621 Long term (current) use of calcineurin inhibitor; Z85.820 Personal history of malignant melanoma of skin
CPT/HCPCS: 71045; 80048; 80053; 83735; 85025; 93005; 96374; 97162; 97166; 99285; G0378

== ENCOUNTER → 2024-05-07 14:38 | Outpatient (REF) | payer MEDICARE, SELFPAY | LOC: WOUND 14:38 | PROVIDERS: ATTENDING PHYSICIAN Surgery; FAMILY PHYSICIAN Surgery | DX: L89.154 Pressure ulcer of sacral region, stage 4 (principal); E66.01 Morbid (severe) obesity due to excess calories | CPT/HCPCS: 99204 ==

== ENCOUNTER → 2024-05-11 09:36 | Outpatient (REF) | payer MEDICARE, SELFPAY | LOC: WOUND 09:36 | PROVIDERS: ATTENDING PHYSICIAN Surgery | DX: L89.154 Pressure ulcer of sacral region, stage 4 (principal); E66.01 Morbid (severe) obesity due to excess calories; D50.9 Iron deficiency anemia, unspecified | CPT/HCPCS: 99213 ==

== ENCOUNTER → 2024-05-26 09:03 | Outpatient (REF) | payer MEDICARE, SELFPAY | LOC: WOUND 09:03 | PROVIDERS: ATTENDING PHYSICIAN Surgery | DX: L89.154 Pressure ulcer of sacral region, stage 4 (principal) | CPT/HCPCS: 99212 ==

== ENCOUNTER → 2024-06-08 09:19 | Outpatient (REF) | payer MEDICARE, SELFPAY | LOC: WOUND 09:19 | PROVIDERS: ATTENDING PHYSICIAN Surgery; FAMILY PHYSICIAN Surgery | DX: L89.154 Pressure ulcer of sacral region, stage 4 (principal); E66.01 Morbid (severe) obesity due to excess calories; D50.9 Iron deficiency anemia, unspecified | CPT/HCPCS: 99213 ==

== ENCOUNTER 2024-06-16 09:58 | Day surgery (SDC) | payer MEDICARE, SELFPAY ==
--- NOTE | 2024-06-15 10:45 | PTCARENOTE ---
Hgb 8.2 on 04/27/24, Surgeon office made aware.
--- NOTE | 2024-06-15 13:39 | SUR.OPER ---
Abn Hgb, Dr. Campos notified, no new requests made by .
[2024-06-16] VITALS (7 sets, daily range): BP systolic 35–128; BP diastolic 44–64; BMI 33.4; BMI 32.4
--- NOTE | 2024-06-16 16:40 | CON.HOSP ---
Family Physician
-
Family Physician: Celso Pepper
Chief Complaint
-
Medical management
History of Present Illness
78-year-old female with a past medical history of left femur fracture status post repair in January 2024, neurogenic bladder status post self-catheterization now with chronic Ramos catheter, tethered cord syndrome status post laminectomy/ walks with a
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 Medicine has been consulted for medical management. Patient is seen and examined in the PACU.
Currently, she reports some irritation in her throat, and feeling like she is hyperventilating. Denies chest pain, nausea, vomiting. Her sacral pain is currently 5 out of 10 in intensity. No abdominal pain.
Medical History
Past Medical History
Past Medical History: Reports Other
Additional Past Medical History:
neurogenic bladder history of self cath prior to surgery January 2024 now with chronic Ramos catheter.
malignant melanoma of skin right forearm s/p resection
glaucoma
blind left eye
aniridia bilateral eyes
anemia
lymphedema
malignant melanoma of the right forearm
obesity
hyperlipidemia
Past Surgical History: Reports Other
Additional Past Surgical History:
Left femur repair January 2024 [facility]
Tethered cord syndrome 10-20 years ago repair with laminectomy
Appendectomy
Tonsillectomy
Cholecystectomy
Social History
Tobacco: Non-smoker
Alcohol: None
Drug: None
Personal:
Living: Residential ([place] with )
Family History
Family History: Reviewed & Not Pertinent
Allergies / Home Medications
Allergies reflects when Allergies were last updated in [employer].
Home Medications with original date entered in [employer]
Allergy/Medication List:
Allergies
Allergy/AdvReac Type Severity Reaction Status Date / Time
brimonidine Allergy Rash Verified 06/16/24 16:32
Home Medications Table - record
�Medication �Instructions �Recorded �Confirmed
acetaminophen 325 mg tablet 975 mg PO Q8 Pain 04/09/24 06/16/24
cyclosporine 0.05 % eye drops in a 1 drp BOTH EYES BID Dry eye 04/09/24 06/16/24
dropperette
gemfibrozil 600 mg tablet 600 mg PO DAILY High Cholesterol 04/09/24 06/16/24
oxybutynin chloride 10 mg 10 mg PO DAILY Caudia Equina 04/09/24 06/16/24
tablet,extended release 24 hr
prednisolone acetate 1 % eye 1 drp RIGHT EYE QID Eye 04/09/24 06/16/24
drops,suspension inflammation
sennosides 8.6 mg tablet (senna) 8.6 mg PO Q12H Constipation 04/09/24 06/16/24
white petrolatum-mineral oil eye 1 applic BOTH EYES DAILY Dry eye 04/09/24 06/16/24
ointment
bisacodyl 10 mg rectal suppository 10 mg WI [id number] PRN constipation 04/16/24 06/16/24
#12 ea
magnesium hydroxide 400 mg/5 mL 2,400 mg PO HSPRN PRN NO BM X 3 04/26/24 06/16/24
oral suspension (Milk of Magnesia) DAYS
sodium hypochlorite 0.125 % 1 applic topical DAILY gluteal 04/26/24 06/16/24
solution (Dakin's Solution) wound
Saccharomyces boulardii 250 mg 250 mg PO BID for ABT use for 30 06/11/24 06/16/24
capsule (Probiotic (S.boulardii)) days
cholestyramine (with sugar) 4 gram 4 g PO DAILY hyperlipidemia 06/11/24 06/16/24
powder for susp in a packet
heparin lock flush (porcine) 10 50 unit IV Q12H 06/11/24 06/16/24
unit/mL intravenous solution
ostomy supplies (Skin Prep Wipes) 06/11/24 06/11/24
polyethylene glycol 3350 17 gram 17 g PO HS Constipation 06/11/24 06/16/24
oral powder packet (Miralax)
simethicone 80 mg chewable tablet 80 mg PO Q6H PRN gas 06/11/24 06/16/24
sodium chloride 0.9 % (flush) 10 ml IV Q12H 06/11/24 06/11/24
Review of Systems
-
A 12 point Review of Systems was completed except as noted: Yes
Physical Exam
Vital Signs
Vital Signs
Temp Pulse Resp BP Pulse Ox
97.6 F 70 18 128/56 99
06/16/24 10:19 06/16/24 10:19 06/16/24 10:19 06/16/24 10:19 06/16/24 10:19
Physical Exam
General: No Apparent Distress
HEENT: Normocephalic, Moist Mucous Membranes and Other (Left eye blindness)
Respiratory: Clear
Cardiac: S1/S2 and Regular Rhythm
GI: Soft, Non Tender, Non Distended and Normal Bowel Sounds
Musculoskeletal: Edema
Neuro: Awake, Alert and Oriented
Psych: Calm
Impression / Plan
-
HPI: 78-year-old female with a past medical history of left femur fracture status post repair in January 2024, neurogenic bladder status post self-catheterization now with chronic Ramos catheter, tethered cord syndrome status post laminectomy/ walks
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 Medicine has been consulted for medical management. Patient is seen and examined in the
PACU. Currently, she reports some irritation in her throat, and feeling like she is hyperventilating. Denies chest pain, nausea, vomiting. Her sacral pain is currently 5 out of 10 in intensity. No abdominal pain.
#Stage IV sacral decubitus ulcer with chronic pain
Patient admitted by plastics status post debridement to bone, muscle flap coverage of sacral wound, adjacent tissue transfer on 06/16/24
Check CBC, BMP
Provide pain meds, monitor
#Status post intertrochanteric fracture left femur with repair January 2024 [facility]
Continue pain control, PT/OT
# Anemia of chronic disease
Trend hemoglobin
#Tethered cord syndrome 10 to 20 years ago status post laminectomy
#Neurogenic bladder history self cath
Patient used to self cath prior to surgery end january
Continue chronic Ramso
#HLD
Continue gemfibrozil 600 mg daily
#Malignant melanoma skin right forearm
#Obesity due to excess calorie consumption�BMI 33.7 kg
Affects all aspects of care
#Glaucoma�blind left eye
#Poor vision in right eye
Continue prednisone drops to right eye, cyclosporine 1 drop both eyes twice daily
#Aniridia both eyes since
DVT prophylaxis�subcu Lovenox
Full code
Total time spent to see the patient on the floor, examine the patient, review data and lab results, discuss treatment plan with patient, nursing staff around 76 minutes.
[2024-06-16] MEDS: DILAUDID 0.25 MG IV ×2 (16:44→17:04)
--- NOTE | 2024-06-16 16:45 | W.IMMPOSTOP ---
Surgical Immed Post Op Note
-
Primary Surgeon: FRANCESCA Paiz MD
Assisting Surgeon:
Pre-op Diagnosis: stage IV sacral decubitus ulcer
Post-op Diagnosis: same
Procedure Performed: debridement to bone, 20 x 20 cm, muscle flap coverage of sacral wound, adjacent tissue transfer 10 x 10 cm
Anesthesia Type: General
Specimen / Cultures: none
Estimated Blood Loss: 30 cc
Complications: none
Operative Findings: as expected
--- NOTE | 2024-06-16 16:47 | OR.RPT ---
Addendum entered and electronically signed by Dre Paiz MD 06/17/24 14:58:
CDI Request:
Debridement was excisional with a 10 blade.
Original Note:
Operative Report
Operative Report
date of surgery: 06/16/2024
Surgeon: FRANCESCA Paiz MD
Preoperative diagnosis: Stage IV sacral decubitus ulcer
Postoperative diagnosis: Same
Procedure:
1. Muscle flap of trunk for sacral wound coverage, Bilateral
2. Adjacent tissue transfer, trunk, 15 x 10 cm
3. Debridement to bone, 20 x 20 cm
anesthesia: General
Complications: None
EBL: 30 cc
Indication for procedure: Patient is a 78-year-old female who is able to ambulate with a walker who was critically ill in the spring. During this time she developed a sacral decubitus ulcer. This was left to granulate in slowly over time and she
recovered. She underwent long-term antibiotic treatment and was left with a slow to heal wound. She was evaluated in wound care clinic and referred to plastic surgery for sacral wound coverage consideration. In consultation with the patient we
discussed her options including continuing local wound care versus debridement, flap coverage and adjacent tissue transfer. She decided to proceed. In reviewing her labs she was protein malnourished, we had a long discussion and that her risk of
recurrence is higher given this. She desired to proceed despite. Risks of the procedure include wound recurrence, breakdown, infection, hematoma, seroma. She understood she would be pressure offloading for a prolonged period of time and
restricted from being in the wheelchair.
Procedure in detail: Patient was identified preoperatively and the surgical site was confirmed to be the sacrum. All questions were answered and consents were confirmed. Patient was taken back to the operating room and intubated in the stretcher
then placed prone after questioning all the appropriate pressure points. Patient was then prepped and draped in the usual sterile fashion using Betadine solution. Timeout for patient safety was performed was confirmed that bilateral SCDs were in
place and preoperative antibiotics have been administered. Procedure began with with the injection 1% lidocaine with epinephrine in the incisional sites. A full assessment of the wound showed a 20 x 20 cm with vast undermining. As such thorough
debridement down to bone need to be performed to take out the chronic scar and granulation tissue. The wound was then thoroughly erg irrigated. Decision was then made to do bilateral muscle flaps to cover the exposed sacrum. Over that adjacent
tissue transfer would be performed in the form of rotation advancement flaps. After excising the wound bed, meticulous hemostasis was ensured. Bilateral gluteus muscle flaps were then raised from medial to lateral on the superior and inferior
gluteal vessels. Th these bilateral muscle flaps were then advanced the midline and used to cover the sacrum. care was taken to preserve all major nerves and vessels. None were encountered. After suturing the muscle together in the midline with
a series of 0 Vicryl interrupted [id number] sutures. A drain was placed in the wound bed. The adjacent tissue transfer overlying was then performed over an area of 15 x 10 cm. This was done in the form of a rotation advancement flaps
bilaterally. Small redundant cones were taken out on the inferior aspect of the left in the superior aspect of the right. The wound bed was then closed in layers with oh, 2-0 and 3-0 Vicryl sutures. 0 chromic sutures were used in a vertical
mattress fashion to close the skin. At the end the case all counts were correct and the patient tolerated the procedure well, it was performed out complication. The wound was dressed with bacitracin ointment dry ABD pads and an Ioband sterile
cover to prevent contamination with stool. She was then returned supine and extubated without issue. Patient was taken the PACU for further care and observation.
[2024-06-16 17:43] LABS: Hematocrit 31.6 % (37.0-47.0); Hemoglobin 10.5 g/dL (12.0-16.0); Mean Corp Hgb Conc. 33.2 g/dL (33.0-37.0); Mean Corpuscular Hgb 27.8 pg (27.0-31.0); Mean Corpuscular Volume 83.6 fL (81.0-99.0); Mean Platelet Volume 9.7 fL (7.4-10.4); Platelet Count 224 10^3/uL (130-400); Red Blood Cell Count 3.78 10^6/uL (4.20-5.40); Red Cell Dist. Width 16.8 % (11.5-14.5); White Blood Cell Count 10.1 10^3/uL (4.8-10.8)
[2024-06-16 17:59] LABS: ALT (SGPT) 12 U/L (0-35); AST (SGOT) 29 U/L (14-36); Albumin 3.2 g/dl (3.5-5.0); Alkaline Phosphatase 129 U/L (38-126); Blood Urea Nitrogen 17 mg/dl (7-17); Calcium 9.1 mg/dl (8.4-10.2); Carbon Dioxide 22 mmol/L (22-30); Chloride 105 mmol/L (98-107); Estimated Creatinine Clearance 79 ml/min; Glucose 132 mg/dl (70-99); Potassium 3.9 mmol/L (3.5-5.1); Sodium 137 mmol/L (135-145); Total Bilirubin 0.6 mg/dl (0.2-1.3); Total Protein 6.3 g/dl (6.3-8.2); eGFR > 60.00
[2024-06-16] MEDS: ULTRAM 100 MG PO (18:12)
[2024-06-16] MEDS: TYLENOL 1000 MG PO (18:13)
[2024-06-16] MEDS: PRED FORTE 1% EYE DROPS 1 DROP RIGHT EYE ×2 (18:20→22:08)
[2024-06-16] MEDS: RESTASIS 0.05% OPHTHALMIC EMULSION 1 DROPS BOTH EYES (20:53)
[2024-06-16] MEDS: DITROPAN 5 MG PO (20:54)
[2024-06-16] MEDS: ANCEF 5 IV (22:07)
[2024-06-17] MEDS: TYLENOL 1000 MG PO ×3 (00:40→13:21)
[2024-06-17 02:59] VITALS: BP 100/47
[2024-06-17] MEDS: ANCEF 5 IV ×2 (05:47→13:21)
[2024-06-17 07:10] LABS: Hematocrit 29.4 % (37.0-47.0); Hemoglobin 9.6 g/dL (12.0-16.0); Mean Corp Hgb Conc. 32.7 g/dL (33.0-37.0); Mean Corpuscular Hgb 27.4 pg (27.0-31.0); Mean Corpuscular Volume 83.8 fL (81.0-99.0); Mean Platelet Volume 10.4 fL (7.4-10.4); Platelet Count 220 10^3/uL (130-400); Red Blood Cell Count 3.51 10^6/uL (4.20-5.40); Red Cell Dist. Width 16.6 % (11.5-14.5); White Blood Cell Count 12.1 10^3/uL (4.8-10.8)
[2024-06-17 07:25] VITALS: BP 124/50
[2024-06-17 07:34] LABS: Blood Urea Nitrogen 17 mg/dl (7-17); Calcium 8.8 mg/dl (8.4-10.2); Carbon Dioxide 24 mmol/L (22-30); Chloride 104 mmol/L (98-107); Estimated Creatinine Clearance 81 ml/min; Glucose 102 mg/dl (70-99); Phosphorus 3.6 mg/dl (2.5-4.5); Potassium 4.4 mmol/L (3.5-5.1); Sodium 135 mmol/L (135-145); eGFR > 60.00
--- NOTE | 2024-06-17 07:57 | W.PN.HOSP.TC ---
Today's Communication/Plan
-
Discharged to [facility] today
Assessment / Plan
Assessment / Plan
HPI: 78-year-old female with a past medical history of left femur fracture status post repair in January 2024, neurogenic bladder status post self-catheterization now with chronic Ramos catheter, tethered cord syndrome status post laminectomy/ walks
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 Medicine has been consulted for medical management. Patient is seen and examined in the
PACU. Currently, she reports some irritation in her throat, and feeling like she is hyperventilating. Denies chest pain, nausea, vomiting. Her sacral pain is currently 5 out of 10 in intensity. No abdominal pain.
#Stage IV sacral decubitus ulcer with chronic pain
Patient admitted by plastics status post debridement to bone, muscle flap coverage of sacral wound, adjacent tissue transfer on 06/16/24
Medically stable for discharge back to halfway[facility] today
#Status post intertrochanteric fracture left femur with repair January 2024 [facility]
Continue pain control, PT/OT
# Anemia of chronic disease
Hgb stable
#Tethered cord syndrome 10 to 20 years ago status post laminectomy
#Neurogenic bladder history self cath
Patient used to self cath prior to surgery end of January
Continue chronic Ramos
#HLD
Continue gemfibrozil 600 mg daily
#Malignant melanoma skin right forearm
#Obesity due to excess calorie consumption
Affects all aspects of care
#Glaucoma�blind left eye
#Poor vision in right eye
Continue prednisone drops to right eye, cyclosporine 1 drop both eyes twice daily
#Aniridia both eyes since
DVT prophylaxis�SCDs
Full code
Total time spent to see the patient on the floor, examine the patient, review data and lab results, discuss treatment plan with patient, nursing staff around 76 minutes.
Physical Exam
General: Appears debilitated, no acute distress
HEENT: Normocephalic, Atraumatic, EOMI, MMM
Left eye blindness
Respiratory: Clear to Auscultation bilaterally
Cardiac: Normal S1/S2, Regular Rate and Rhythm
GI: Soft, Nontender, Nondistended, Normal Bowel Sounds
Extremities: No Clubbing, Cyanosis
Bilateral lower extremity lymphedema
Neuro: Nonfocal/Grossly Intact
Psych: Calm, Cooperative
Derm: Sacral wound dressed
Anticipated Discharge: Today
Subjective/Interval History
-
Date of Service: June 17, 2024
Reports her sacral pain is tolerable. No fever, chest pain, or shortness of breath. No vomiting.
Objective Data
-
Labs:
Laboratory Results
06/17/24
06:29
WBC 12.1 H
Hgb 9.6 L
Hct 29.4 L
Plt Count 220
Sodium 135
Potassium 4.4
Chloride 104
Carbon Dioxide 24
BUN 17
Creatinine 0.6
Glucose 102 H
Calcium 8.8
Vital Signs:
Vital Signs
Temp Pulse Resp BP Pulse Ox
98.4 F 71 20 100/47 97
06/17/24 02:59 06/17/24 02:59 06/17/24 02:59 06/17/24 02:59 06/17/24 03:20
I&O
06/16/24 06/17/24 06/18/24
06:59 06:59 06:59
Intake Total 120 / 120
Output Total 480 / 480
Balance -360 / -360
[2024-06-17] MEDS: LOPID 600 MG PO (08:43)
[2024-06-17] MEDS: PRED FORTE 1% EYE DROPS 1 DROP RIGHT EYE ×2 (08:44→13:22)
[2024-06-17] MEDS: DITROPAN 5 MG PO (08:44)
[2024-06-17] MEDS: RESTASIS 0.05% OPHTHALMIC EMULSION 1 DROPS BOTH EYES (08:44)
[2024-06-17] MEDS: QUESTRAN 4 GRAM PO (09:34)
[2024-06-17 12:20] VITALS: BP 124/48; PULSE 71; PULSE 76; O2SAT 97
--- NOTE | 2024-06-17 13:30 | W.DCSUMMARY ---
Discharge Summary
Discharge Data
Date of Admission: 06/16/24
Date of Discharge: 06/17/24
-
Pending Results: No
Hospital Course
Admitted following flap reconstruction of stage IV sacral wound.
Uncomplicated postoperative course.
Discharged back to facility with drain and wound care instructions.
No direct pressure to wound by sitting or laying on back. Pressure to sides is OK. Rotate every 1-2 hours while in bed. OK to ambulate.
Discharge Plan
-
Patient Disposition: Prison/SNF
Discharge Diagnosis/Procedures: Stage IV sacral decubitus ulcer status postdebridement, muscle flap coverage, tissue transfer
Condition: Good
Diet: Low Fat and Low Cholesterol
Activity: As tolerated
Driving Restrictions: As prior to admission
Wound Care: Remove dressing 7 days postop or if soiled. Clean wound daily thereafter and for stool soilage. Strip and record drain output daily
Referrals:
Celso Pepper MD [Family Provider] - in one week
Dre Paiz MD [Active] - in one to two weeks
Prescriptions:
Continued
sennosides [senna] 8.6 mg Tablet
8.6 mg PO Q12H
acetaminophen 325 mg Tablet
975 mg PO Q8
oxybutynin chloride 10 mg Tablet Extended Release 24hr
10 mg PO DAILY
white petrolatum-mineral oil Ointment
1 applic BOTH EYES DAILY
prednisolone acetate 1 % Drops,Suspension
1 drp RIGHT EYE QID
gemfibrozil 600 mg Tablet
600 mg PO DAILY
cyclosporine 0.05 % Dropperette
1 drp BOTH EYES BID
bisacodyl 10 mg Suppository
10 mg VT [id number] PRN (Reason: constipation) Qty: 12 0RF
magnesium hydroxide [Milk of Magnesia] 400 mg/5 mL Suspension
2,400 mg PO HSPRN PRN (Reason: NO BM X 3 DAYS)
Dakin's Solution 0.125 % solution
1 applic topical DAILY
simethicone 80 mg Tablet,Chewable
80 mg PO Q6H PRN (Reason: gas)
cholestyramine (with sugar) 4 gram Powder In Packet
4 g PO DAILY
Rx Instructions:
mix w/fluids
polyethylene glycol 3350 [Miralax] 17 gram Powder In Packet
17 g PO HS
(DME) Skin Prep Wipes Misc
MISCELLANEOUS
Saccharomyces boulardii [Probiotic (S.boulardii)] 250 mg Capsule
250 mg PO BID
Discontinued
heparin lock flush (porcine) [heparin lock flush] 10 unit/mL Solution
50 unit IV Q12H
Rx Instructions:
Use 5cc IV q shift for IV ABT tx flush catheter using the SASH method to administer medications w/ 5cc syringe provided by [employer]. If no medication administration given on the shift, flush w/ saline then heparin.
sodium chloride 0.9 % (flush) Syringe
10 ml IV Q12H
Rx Instructions:
IV ABT tx flush catheter using the SASH method to administer medications w/10 cc syringe provided by [employer]. If no medication administration given on the shift, flush with saline then heparin.
Discharge Orders:
Discharge Patient (As Directed); Ordered 06/17/24
Ordered By: Dre Paiz
Discharge Date and Time
Print Language: PERSIAN
--- NOTE | 2024-06-17 14:14 | CM ---
Reviewed the chart notes and spoke with the patient at the bedside and left voice message for the patient's son Mt regarding discharge back to [facility] where the patient has a MA pending bed. Patient at baseline is wheelchair bound.
Patient with decub ulcer repair. CM continues to be available to patient/family and is monitoring medical plan for needs at discharge.
Plan: Discharge back to [facility] today.
Call report to: [phone]
Fax report to: [phone]
Medical necessity and transport form on chart.
--- NOTE | 2024-06-17 14:28 | PN.CDI ---
CDI
- -
CDI:
Physician Documentation Request
Admit Date: 06/16/24 09:58
Dear Doctor Izabel,
Clinical Indicators:
Patient admitted with Stage IV Sacral Decubitus ulcer.
06/16 Operative Report, 'As such thorough debridement down to bone need to be performed to take out the chronic scar and granulation tissue.'
Could you provide, in the progress notes further clarification regarding the debridement.
Please specify the type of debridement performed:
1. Excisional Debridement - defined as removal by excision of devitalized tissue, necrosis or slough
2. Non-excisional debridement - defined as removal of devitalized tissue, necrosis or slough by such methods as irrigation, brushing, scrubbing or washing.
If the debridement was excisional, please also include:
1. Type of instrument used (#11 blade, #15 blade etc.)
Use of terms such as suspected, likely, concern for, or probable (associated with a specific diagnosis that is being evaluated, monitored, or treated as if it exists) are acceptable and can be coded in the inpatient setting, when documented at the
time of discharge.
Thank you,
Delia Ordoñez RN BSN
CDI Specialist
available via tiger text
Please use your independent medical judgment in providing your response.
--- NOTE | 2024-06-17 14:36 | VATNOTE ---
Left PICC d/c'd TCL 45cm retrieved, no bleeding from insertion site. Occlusive dressing applied
--- NOTE | 2024-06-17 15:41 | PTCARENOTE ---
Called [facility] and spoke to nurse diana 1530. . Transport bean picker time 1730.
== END 2024-06-17 18:13 ==
LOC: SDS 09:58
PROVIDERS: ATTENDING PHYSICIAN Surgery Plastic and Reconstructive Surgery; CONSULT PHYSICIAN Family Medicine; FAMILY PHYSICIAN Internal Medicine
DX: L89.154 Pressure ulcer of sacral region, stage 4 (principal); G89.29 Other chronic pain; D63.8 Anemia in other chronic diseases classified elsewhere; E46 Unspecified protein-calorie malnutrition; E78.5 Hyperlipidemia, unspecified; I45.10 Unspecified right bundle-branch block; N31.9 Neuromuscular dysfunction of bladder, unspecified; E66.01 Morbid (severe) obesity due to excess calories; Z68.32 Body mass index [BMI] 32.0-32.9, adult; Z79.2 Long term (current) use of antibiotics; Z79.899 Other long term (current) drug therapy
CPT/HCPCS: 15734; 71045; 80048; 80053; 83735; 84100; 85027; 93005; 97163; 97167

== ENCOUNTER → 2024-06-23 07:34 | Outpatient (REF) | payer MEDICARE, SELFPAY | LOC: WOUND 07:34 | PROVIDERS: ATTENDING PHYSICIAN Surgery | DX: L89.154 Pressure ulcer of sacral region, stage 4 (principal); E66.01 Morbid (severe) obesity due to excess calories; D50.9 Iron deficiency anemia, unspecified | CPT/HCPCS: 99213 ==